=== PATIENT | female | born 1980 | race Caucasian/White ===

== ENCOUNTER → 2021-09-24 08:53 | Outpatient (CLI) | payer OTHER, SELFPAY ==
[2021-09-25 14:05] LABS: SARS-CoV-2 RNA PCR Negative
== END ==
PROVIDERS: PCP Family Medicine; Visit Provider Nurse Practitioner Family
DX: R68.89 Other general symptoms and signs (principal); Z20.822 Contact with and (suspected) exposure to COVID-19
CPT/HCPCS: C9803; U0003; U0005

== ENCOUNTER 2022-08-14 13:56 | Emergency (ER) | payer OTHER, SELFPAY ==
--- NOTE | 2022-08-14 13:59 | ED.EYEPROB ---
HPI - Eye Problem General Chief complaint: Eye Problems Stated complaint: Lt Eye Irritation Time Seen by Provider: 08/14/22 13:59 Source: patient Mode of arrival: ambulatory Limitations: no limitations History of Present Illness HPI Narrative: Mikayla is a 41-year-old female patient presenting to clinic today with complaints of left eye discomfort. She reports she thinks something may a blew in her eye yesterday while she was outside. Reports pain is to the top of the eye in the upper inner eyelid. She reports that the area has some mild swelling and is very tender to palpation. It is causing some blurry vision Related Data Home Medications Medication Instructions Recorded Confirmed alprazolam 0.25 mg tablet 0.25 mg PO QHS PRN Anxiety 08/26/21 08/14/22 ascorbic acid (vitamin C) 500 mg 250 mg PO DAILY 08/26/21 08/14/22 tablet cranberry 400 mg capsule 400 mg PO DAILY 08/26/21 08/14/22 folic acid 1 mg tablet 1 mg PO DAILY 08/26/21 08/14/22 pantoprazole 20 mg tablet,delayed 20 mg PO BID 08/26/21 08/14/22 release ustekinumab 90 mg/mL subcutaneous 90 mg subcut MONTHLY 08/26/21 08/14/22 syringe (Stelara) hyoscyamine sulfate 0.125 mg tablet 0.125 mg PO PRN PRN Cramps 08/14/22 08/14/22 ondansetron HCl 8 mg tablet 8 mg PO PRN PRN Nausea 08/14/22 08/14/22 spironolactone 100 mg tablet 100 mg PO DAILY 08/14/22 08/14/22 Allergies Allergy/AdvReac Type Severity Reaction Status Date / Time No Known Allergies Allergy Verified 08/14/22 14:03 Review of Systems Review of Systems: Pertinent positives per HPI. Patient denies any fever, chills, rash, headache, dizziness, cough, runny nose, sore throat, shortness of breath, chest pain, palpitations, nausea, vomiting, diarrhea, constipation, abdominal pain, or any urinary issues. PMF Past Medical History Medical History Anxiety Colonic disease Crohn disease Osteopenia Surgical History Surgical History History of bilateral breast reduction surgery History of colon resection History of facial surgery Family History Family History Other Allergies Asthma Breast cancer Malignant neoplasm of prostate Social History Social History Smoking status: Current every day smoker (E cigs/vaging) Tobacco type: e-cigarettes/vaping Alcohol intake: current Comments At the time of my signature, I reviewed and agree with the nursing past medical, surgical, social, and family history. There is no relevant family history pertinent to the patient complaint. Exam Narrative: General: Well-developed, well nourished, in no apparent distress Head: Normocephalic, atraumatic Eyes: Pupils equally round and reactive to light bilaterally, EOM intact, right sclera and conjunctive clear, left sclera injected and conjunctiva clear, no discharge, right lids normal, left upper lid with mild swelling and tender to palpation. No mass, lesion, foreign body noted in the left eye. Wood's lamp exam performed and is negative for any sign of corneal abrasion. Ears: TMs intact and clear, ear canals clear, no drainage, grossly hearing normal. Nose: Nares patent, no discharge, no inflammation, no sinus tenderness. Mouth: Oropharynx without lesions or masses, good dentition, MMM. Neck: Supple, trachea midline, no enlargement of anterior or posterior cervical nodes, no thyroid masses or goiter palpable. Cardio: Regular rate and rhythm, s1 and s2 normal, no murmur appreciated. Resp: Clear to auscultation bilaterally anteriorly and posteriorly, no rhonchi, rales, wheezing or rubs Course Course Emergency Course: Portions of this record may have been created with voice recognition software. Level of Care: Express Care Visit Vital Signs Vital signs: V
[2022-08-14 14:09] VITALS: BP 133/84; PULSE 123; RESP 18; TEMP 36.7; O2SAT 100
== END 2022-08-14 14:20 | disposition home or self-care (01) ==
PROVIDERS: Emergency Provider Nurse Practitioner Family; PCP Family Medicine
DX: H57.12 Ocular pain, left eye (principal); F17.209 Nicotine dependence, unspecified, with unspecified nicotine-induced disorders
CPT/HCPCS: 99213; A9270; G0463

== ENCOUNTER 2023-01-14 10:06 | Outpatient (CLI) | payer OTHER, SELFPAY ==
[2023-01-14 11:05] LABS: T4 Thyroxine 8.25 ug/dL (5.53-11.0)
== END 2023-01-14 10:07 | disposition home or self-care (01) ==
PROVIDERS: PCP Family Medicine; Visit Provider Nurse Practitioner Family
DX: K50.90 Crohn's disease, unspecified, without complications (principal); R21 Rash and other nonspecific skin eruption; F41.9 Anxiety disorder, unspecified
CPT/HCPCS: 36415; 84436

== ENCOUNTER 2023-03-30 11:13 | Outpatient (CLI) | payer OTHER, SELFPAY ==
[2023-03-30 12:13] LABS: Free T4 Free Thyroxine 1.06 ng/mL (0.78-2.19)
[2023-03-30 12:20] LABS: Thyroid Stimulating Hormone 0.514 uIU/mL (0.465-4.680)
[2023-04-01 04:47] LABS: FSH 24.7 mIU/mL (***); LH 18.5 mIU/mL (***)
[2023-04-05 18:17] LABS: Estrogen 639.1 pg/mL
== END 2023-03-30 11:14 | disposition home or self-care (01) ==
LOC: ANHLAB 11:14
PROVIDERS: PCP Family Medicine; Visit Provider Nurse Practitioner Family
DX: R63.5 Abnormal weight gain (principal); R53.83 Other fatigue; R23.2 Flushing
CPT/HCPCS: 36415; 82672; 83001; 83002; 84439; 84443

== ENCOUNTER 2023-06-17 10:55 | Outpatient (CLI) | payer OTHER, SELFPAY ==
[2023-06-22 06:29] LABS: FSH 10.1 mIU/mL (***); Progesterone 0.3 ng/mL (***)
[2023-06-24 21:28] LABS: Estradiol, Ultrasensitive 132 pg/mL
== END 2023-06-17 10:56 | disposition home or self-care (01) ==
LOC: ANHLAB 10:57
PROVIDERS: PCP Family Medicine; Visit Provider Obstetrics & Gynecology
DX: E28.0 Estrogen excess (principal); R23.2 Flushing
CPT/HCPCS: 36415; 82670; 83001; 84144

== ENCOUNTER 2023-10-02 13:22 | Emergency (ER) | payer OTHER, SELFPAY ==
--- NOTE | 2023-10-02 13:42 | ED.GENADULT ---
HPI - General Adult General Chief complaint: Ear Stated complaint: rt ear pain Time Seen by Provider: 10/02/23 13:42 Source: patient Mode of arrival: ambulatory Limitations: no limitations History of Present Illness HPI narrative: 43-year-old female patient presents to [facility] with complaints of congestion in the sinuses right-sided jaw and ear pain. Patient states she has had the symptoms for about 5 days. Patient denies any fevers body aches or chills. Denies any chest pain, shortness of breath, coughing, Dom abdominal pain, nausea, vomiting or diarrhea. Patient does have history of Crohn's and recently started and infusion. Related Data Home Medications Medication Instructions Recorded Confirmed alprazolam 0.25 mg tablet 0.25 mg PO QHS PRN Anxiety 08/26/21 10/02/23 ascorbic acid (vitamin C) 500 mg 250 mg PO DAILY 08/26/21 10/02/23 tablet cranberry 400 mg capsule 400 mg PO DAILY 08/26/21 10/02/23 hyoscyamine sulfate 0.125 mg tablet 0.125 mg PO PRN PRN Cramps 08/14/22 10/02/23 levonorgestrel 21 mcg/24 hours (8 See Rx Instructions .Route .COMPLEX 08/14/22 10/02/23 yrs) 52 mg intrauterine device (Mirena) spironolactone 100 mg tablet 100 mg PO DAILY 08/14/22 10/02/23 risankizumab-rzaa 60 mg/mL 600 mg IV MONTHLY 06/09/23 10/02/23 intravenous solution (Skyrizi) ibuprofen 100 mg/5 mL oral 600 mg PO TID pain 10/02/23 10/02/23 suspension Allergies Allergy/AdvReac Type Severity Reaction Status Date / Time Iodinated Contrast Media AdvReac Severe Anaphylaxis Verified 10/02/23 13:48 acetaminophen [From Percocet] AdvReac Intermediate Hypotension Verified 10/02/23 13:48 buspirone [From BuSpar] AdvReac Intermediate Palpitation Verified 10/02/23 13:48 s oxycodone [From Percocet] AdvReac Intermediate Hypotension Verified 10/02/23 13:48 Review of Systems Review of Systems: CONSTITUTIONAL: Denies fever, chills, or sweats. EYES: Denies visual changes, redness, or discharge. ENT: Positive rhinorrhea, congestion, denies sore throat, positive right otalgia. CARDIOVASCULAR: Denies chest pain, palpitations, or edema. RESPIRATORY: Denies cough or dyspnea. GASTROINTESTINAL: Denies abdominal pain, nausea, vomiting, or diarrhea. GENITOURINARY: Denies dysuria or hematuria. SKIN: Denies rash or itching. MUSCULOSKELETAL: Denies back pain, joint pain, or myalgia. NEUROLOGIC: Denies headache, numbness, or weakness. PSYCHIATRIC: Denies anxiety or depression. [facility] Past Medical History Medical History Anxiety BMI 29.0-29.9,adult Colonic disease Crohn disease Osteopenia Surgical History Surgical History History of bilateral breast reduction surgery History of colon resection History of facial surgery Family History Family History Father Hypertension Depression Mother Asthma Grandparent Kidney cancer, primary, with metastasis from kidney to other site Other Allergies Breast cancer Malignant neoplasm of prostate Social History Social History Smoking status: Current every day smoker Tobacco type: e-cigarettes/vaping Second hand tobacco smoke exposure: Yes Alcohol intake: current Alcohol use details: socially Substance use: never Substance use type: does not use Lack of Transportation: No Lack of Food: Never True Current Housing: I Have Housing Concerned About Future Housing: No Difficulty Paying Gas/Electric Bills: No Difficulty Paying for Meds: No Currently Unemployed: No Education: High School Diploma/GED Difficulty w/ Childcare or Family Care: No Living arrangements: with family Occupation/Education: occupation 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
[2023-10-02 13:46] VITALS: BP 129/89; PULSE 89; RESP 16; TEMP 36.3; O2SAT 99
== END 2023-10-02 14:22 | disposition home or self-care (01) ==
PROVIDERS: Emergency Provider Nurse Practitioner Family; PCP Family Medicine
DX: J01.90 Acute sinusitis, unspecified (principal); K50.90 Crohn's disease, unspecified, without complications; F17.290 Nicotine dependence, other tobacco product, uncomplicated; Z79.899 Other long term (current) drug therapy; Z79.1 Long term (current) use of non-steroidal anti-inflammatories (NSAID)
CPT/HCPCS: 99213; G0463

== ENCOUNTER → 2023-11-22 09:47 | Outpatient (CLI) | payer OTHER, SELFPAY ==
--- NOTE | ~2023-11-22 | MM_ITS ---
EXAMINATION: MM screening марина BI w candie HISTORY: Screening TECHNIQUE: Craniocaudal and mediolateral oblique 3-D tomosynthesis images were obtained and synthetic 2-D images were generated. CAD analysis was submitted and interpreted. COMPARISON: No prior mammogram is available for comparison at this institution. BREAST PARENCHYMAL COMPOSITION: Dense: The breasts are heterogeneously dense, which may obscure small masses FINDINGS: There is distortion in the outer aspect of both breasts on CC views, consistent with prior breast reduction surgery. There are no discrete masses or suspicious cluster of calcifications. IMPRESSION: 1. Bilateral asymmetry/architectural distortion, likely postsurgical. Recommend comparison to previou s outside mammograms. BI-RADS CATEGORY 0 - INCOMPLETE STUDY, NEED ADDITIONAL IMAGING EVALUATION. Reviewed, dictated and finalized at location A. 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 Bilateral asymmetry/architectural distortion, likely postsurgical. Recommend comparison to previous outside mammograms. BI-RADS CATEGORY 0 - INCOMPLETE STUDY, NEED ADDITIONAL IMAGING EVALUATION.
== END ==
PROVIDERS: PCP Nurse Practitioner Family; Visit Provider Nurse Practitioner Family
DX: Z12.31 Encounter for screening mammogram for malignant neoplasm of breast (principal); R92.8 Other abnormal and inconclusive findings on diagnostic imaging of breast
CPT/HCPCS: 77063; 77067

== ENCOUNTER 2024-02-22 14:00 | Emergency (ER) | payer OTHER, SELFPAY ==
[2024-02-22 14:10] VITALS: BP 120/92; PULSE 95; RESP 18; TEMP 36.3; O2SAT 100
--- NOTE | 2024-02-22 14:17 | ED.SKABFB ---
HPI - Skin/Abscess/Foreign Bdy General Chief complaint: Skin/Abscess/Foreign Body Stated complaint: tick bite Time Seen by Provider: 02/22/24 14:17 Source: patient Mode of arrival: ambulatory Limitations: no limitations History of Present Illness HPI narrative: 43-year-old female presents with complaint of tick bite to left hip. Patient states that she removed a tick 4 days ago. States that redness worse today. Mild swelling with no drainage. Patient also reports several mosquito bites with swelling and redness. Patient states she is prone to getting skin infections easily. Is concerned she may need an antibiotic. No concern for Lyme disease. States the tick was tiny and thinks was a seed tick. All systems reviewed and negative except as noted above. Related Data Home Medications Medication Instructions Recorded Confirmed alprazolam 0.25 mg tablet 0.25 mg PO QHS PRN Anxiety 08/26/21 02/22/24 ascorbic acid (vitamin C) 500 mg 250 mg PO DAILY 08/26/21 02/22/24 tablet cranberry 400 mg capsule 400 mg PO DAILY 08/26/21 02/22/24 hyoscyamine sulfate 0.125 mg tablet 0.125 mg PO PRN PRN Cramps 08/14/22 02/22/24 levonorgestrel 21 mcg/24 hr (up to See Rx Instructions .Route .COMPLEX 08/14/22 02/22/24 8 years) 52 mg intrauterine device (Mirena) risankizumab-rzaa 360 mg/2.4 mL See Rx Instructions .Route .COMPLEX 02/22/24 02/22/24 (150 mg/mL) subcut wearable injector (Skyrizi) Allergies Allergy/AdvReac Type Severity Reaction Status Date / Time Iodinated Contrast Media AdvReac Severe Anaphylaxis Verified 02/22/24 14:04 acetaminophen [From Percocet] AdvReac Intermediate Hypotension Verified 02/22/24 14:04 buspirone [From BuSpar] AdvReac Intermediate Palpitation Verified 02/22/24 14:04 s oxycodone [From Percocet] AdvReac Intermediate Hypotension Verified 02/22/24 14:04 Review of Systems Review of Systems: CONSTITUTIONAL: Denies fever, chills, or sweats. EYES: Denies visual changes, redness, or discharge. ENT: Denies rhinorrhea, congestion, sore throat, or otalgia. CARDIOVASCULAR: Denies chest pain, palpitations, or edema. RESPIRATORY: Denies cough or dyspnea. GASTROINTESTINAL: Denies abdominal pain, nausea, vomiting, or diarrhea. GENITOURINARY: Denies dysuria or hematuria. SKIN: Denies rash. Reports several mosquito bites, reports tick bite to left hip. MUSCULOSKELETAL: Denies back pain, joint pain, or myalgia. NEUROLOGIC: Denies headache, numbness, or weakness. PSYCHIATRIC: Denies anxiety or depression. All other systems reviewed are negative, except as documented in HPI. [facility] Past Medical History Medical History Anxiety BMI 29.0-29.9,adult Colonic disease Crohn disease Osteopenia Surgical History Surgical History History of bilateral breast reduction surgery History of colon resection History of facial surgery Family History Family History Father Hypertension Depression Mother Asthma Grandparent Kidney cancer, primary, with metastasis from kidney to other site Other Allergies Breast cancer Malignant neoplasm of prostate Social History Social History Smoking status: Current every day smoker Tobacco type: e-cigarettes/vaping Second hand tobacco smoke exposure: Yes Alcohol intake: current Alcohol use details: socially Substance use: never Substance use type: does not use Lack of Transportation: No Lack of Food: Never True Current Housing: I Have Housing Concerned About Future Housing: No Difficulty Paying Gas/Electric Bills: No Difficulty Paying for Meds: No Currently Unemployed: No Education: High School Diploma/GED Difficulty w/ Childcare or Family Care: No Living arrangements: with family Occupation/Education: occupation
== END 2024-02-22 14:28 | disposition home or self-care (01) ==
PROVIDERS: Emergency Provider Nurse Practitioner Family; PCP Family Medicine
DX: S70.262A Insect bite (nonvenomous), left hip, initial encounter (principal); W57.XXXA Bitten or stung by nonvenomous insect and other nonvenomous arthropods, initial encounter; F41.9 Anxiety disorder, unspecified; K50.90 Crohn's disease, unspecified, without complications; M81.0 Age-related osteoporosis without current pathological fracture; F17.290 Nicotine dependence, other tobacco product, uncomplicated
CPT/HCPCS: 99213; G0463

== ENCOUNTER 2024-04-25 08:25 | Outpatient (CLI) | payer OTHER, SELFPAY ==
--- NOTE | ~2024-04-25 | MMUS_ITS ---
EXAMINATION: MM diagnostic марина BI w candie, US breast BI complete HISTORY: Follow-up bilateral breast asymmetries TECHNIQUE: Additional 3-D tomosynthesis images of the breasts were performed and synthetic 2-D images were generated. CAD analysis was submitted and interpreted. High resolution bilateral complete breas t ultrasound was performed. COMPARISON: Comparison to multiple prior studies sequentially, with oldest reviewed study dated 08/26. BREAST PARENCHYMAL COMPOSITION: Dense: The breasts are heterogeneously dense, which may obscure small masses FINDINGS: MAMMOGRAPHIC FINDINGS: There are persistent asymmetries in the upper outer quadrant of both breasts, although no discrete ma ss or architectural distortion is seen. There are no suspicious calcifications. ULTRASOUND: Complete bilateral US of all 4 quadrants of the breasts and retroareolar region was reviewed. Right breast: Normal heterogeneous echotexture without focal solid or cystic mass. Left breast: There are the areola at 12:00 there is an irregular shaped hypoechoic mass with areas of posterior acoustic shadowing and irregular margins. No internal vascularity. At 6:00, 8 cm from the nipple, there is a benign 7 mm intramammary lymph node. IMPRESSION: 1. Irregular shaped hypoechoic mass of the left breast with areas of posterior shadowing at 12:00 bill r the nipple. 2. Ultrasound-guided left breast biopsy recommended. BI-RADS category 4, suspicious findings. Reviewed, dictated and finalized at location B. IMPRESSION: 1. Irregular shaped hypoechoic mass of the left breast with areas of posterior shadowing at 12:00 near the nipple. 2. Ultrasound-guided left breast biopsy recommended. BI-RADS category 4, suspicious findings.
== END 2024-04-25 08:26 ==
LOC: MICIMG 08:26
PROVIDERS: PCP Family Medicine; Visit Provider Nurse Practitioner Family
DX: N64.89 Other specified disorders of breast (principal); R92.8 Other abnormal and inconclusive findings on diagnostic imaging of breast
CPT/HCPCS: 76641; 77062; 77066; G0279

== ENCOUNTER 2024-05-16 09:13 | Outpatient (CLI) | payer OTHER, SELFPAY ==
--- NOTE | ~2024-05-16 | US_ITS ---
US breast LT limited 05/16/2024 11:09 Indication: Abnormal hypoechoic mass seen in the left breast on prior examination. Biopsy requested. Procedure: High-resolution Limited LEFT breast ultrasound Comparison: Ultrasound dated 04/25/2024 Findings: In the area of sonographic concern at 12:00 near the nipple there are mildly prominent duct s with some edge shadowing. No discrete mass is identified. Impression: 1: No definite discrete solid mass identified to suggest malignancy. Short-term follow-up left breast ultrasound recommended in 6 months. BI-RADS CATEGORY 3-PROBABLY BENIGN FINDING RECOMMENDATION: 6 month follow-up Limited left breast ultrasound recommended. Reviewed, dictated and finalized at location B. Impression: 1: No definite discrete solid mass identified to suggest malignancy. Short-term follow-up left breast ultrasound recommended in 6 months. BI-RADS CATEGORY 3-PROBABLY BENIGN FINDING RECOMMENDATION: 6 month follow-up Limited left breast ultrasound recommended.
== END 2024-05-16 09:14 | disposition home or self-care (01) ==
LOC: ANHIMG 09:14
PROVIDERS: PCP Family Medicine; Visit Provider Nurse Practitioner Family
DX: N63.20 Unspecified lump in the left breast, unspecified quadrant (principal); R92.8 Other abnormal and inconclusive findings on diagnostic imaging of breast
CPT/HCPCS: 76642

== ENCOUNTER 2024-06-29 08:57 | Emergency (ER) | payer OTHER, SELFPAY ==
--- NOTE | 2024-06-29 09:04 | ED.URI ---
HPI - URI/Sore Throat General Chief Complaint: Upper Respiratory Infection Stated Complaint: cold symptoms Time Seen by Provider: 06/29/24 09:04 Source: patient Mode of arrival: ambulatory Limitations: no limitations History of Present Illness HPI Narrative: 43-year-old female presents with complaint of cough, fatigue, body aches, headache for 5 days. Reports temp 101? F this a.m.. Took ibuprofen prior to arrival. Has been taking Tylenol Cold and flu to treat symptoms. no chest pain or shortness of breath. Patient reports off and on sick for the past month. Last week thought she had a GI bug. Prior to that had an upper respiratory infection. Reports dry mouth and fatigue. Thinks she is dehydrated. [facility] ago and had IV bag of fluids. No urinary symptoms. All systems reviewed and negative except as noted above. Related Data Home Medications Medication Instructions Recorded Confirmed alprazolam 0.25 mg tablet 0.25 mg PO QHS PRN Anxiety 08/26/21 06/29/24 ascorbic acid (vitamin C) 500 mg 250 mg PO DAILY 08/26/21 06/29/24 tablet cranberry 400 mg capsule 400 mg PO DAILY 08/26/21 06/29/24 hyoscyamine sulfate 0.125 mg tablet 0.125 mg PO PRN PRN Cramps 08/14/22 06/29/24 levonorgestrel 21 mcg/24 hr (up to See Rx Instructions .Route .COMPLEX 08/14/22 06/29/24 8 years) 52 mg intrauterine device (Mirena) risankizumab-rzaa 360 mg/2.4 mL See Rx Instructions .Route .COMPLEX 02/22/24 06/29/24 (150 mg/mL) subcut wearable injector (Skyrizi) spironolactone 100 mg tablet 100 mg PO DAILY 06/29/24 06/29/24 Allergies Allergy/AdvReac Type Severity Reaction Status Date / Time Iodinated Contrast Media AdvReac Severe Anaphylaxis Verified 06/29/24 09:01 acetaminophen [From Percocet] AdvReac Intermediate Hypotension Verified 06/29/24 09:01 buspirone [From BuSpar] AdvReac Intermediate Palpitation Verified 06/29/24 09:01 s oxycodone [From Percocet] AdvReac Intermediate Hypotension Verified 06/29/24 09:01 Review of Systems Review of Systems: CONSTITUTIONAL: Reports fever, chills, or sweats. EYES: Denies visual changes, redness, or discharge. ENT: Denies rhinorrhea, congestion, sore throat, or otalgia. CARDIOVASCULAR: Denies chest pain, palpitations, or edema. RESPIRATORY: reports cough. Reports dyspnea. GASTROINTESTINAL: Denies abdominal pain, nausea, vomiting, or diarrhea. GENITOURINARY: Denies dysuria or hematuria. SKIN: Denies rash or itching. MUSCULOSKELETAL: Denies back pain. Reports joint pain, or myalgia. NEUROLOGIC: Denies headache, numbness, or weakness. PSYCHIATRIC: Denies anxiety or depression. All other systems reviewed are negative, except as documented in HPI. [facility] Past Medical History Medical History (Updated 06/29/24 @ 09:34 by Flor Alejandra NP) Anxiety Colonic disease Crohn disease Osteopenia Surgical History Surgical History History of bilateral breast reduction surgery History of colon resection History of facial surgery Family History Family History Father Hypertension Depression Mother Asthma Grandparent Kidney cancer, primary, with metastasis from kidney to other site Other Allergies Breast cancer Malignant neoplasm of prostate Social History Social History Smoking status: Current every day smoker Tobacco type: e-cigarettes/vaping Second hand tobacco smoke exposure: Yes Alcohol intake: current Alcohol use details: socially Substance use: never Substance use type: does not use Lack of Transportation: No Lack of Food: Never True Current Housing: I Have Housing Concerned About Future Housing: No Difficulty Paying Gas/Electric Bills: No Difficulty Paying for Meds: No Currently Unemployed: No Education: High School Diploma/GED Difficulty w/ Childcare o
[2024-06-29 09:10] VITALS: BP 116/81; PULSE 112; RESP 18; TEMP 37.2; O2SAT 100
[2024-06-29 09:35] LABS: EDINFLUASCREEN Negative (Negative); EDINFLUBSCREEN Negative (Negative)
[2024-06-29 09:36] LABS: EDCOVIDSCREEN Negative (Negative)
== END 2024-06-29 09:35 | disposition home or self-care (01) ==
PROVIDERS: Emergency Provider Nurse Practitioner Family; PCP Family Medicine
DX: R05.9 Cough, unspecified (principal); M25.50 Pain in unspecified joint; Z20.822 Contact with and (suspected) exposure to COVID-19; K50.90 Crohn's disease, unspecified, without complications; M85.80 Other specified disorders of bone density and structure, unspecified site; F41.9 Anxiety disorder, unspecified; F17.290 Nicotine dependence, other tobacco product, uncomplicated
CPT/HCPCS: 87426; 87804; 99213; G0463

== ENCOUNTER 2024-12-17 09:33 | Outpatient (CLI) | payer OTHER, SELFPAY ==
--- NOTE | ~2024-12-17 | US_ITS ---
EXAMINATION: US breast LT limited HISTORY: 44-year-old woman with no significant family or personal history of breast cancer presents f or diagnostic 6 month follow-up ultrasound examination of an area of prior mammographic and sonograph ic concern within the left breast. Of note, the patient has undergone bilateral reduction mammoplasty in 2019, complicated by a postoperative hematoma. High resolution limited left breast ultrasound was performed. COMPARISON: Reference is made to previous ultrasound dated 05/16/2024 and 04/25/2024 as well as prior m ammography dated 04/25/2024 and 11/22/2023. FINDINGS: ULTRASOUND: At the 12:00 position of the left breast adjacent to the area of prior sonographic concern, no abnorm ality is appreciated. Sonographic evaluation of the remainder of the submitted images demonstrate benign fibroglandular maynor ments without a cystic or solid lesion of concern. IMPRESSION: No sonographic evidence to suggest the presence of malignancy Resumption of yearly mammography is recommended. BI-RADS Category 2: Benign finding(s). Reviewed, dictated and finalized at location A.
== END 2024-12-17 09:34 | disposition home or self-care (01) ==
LOC: MICIMG 09:35
PROVIDERS: PCP Family Medicine; Visit Provider Nurse Practitioner Family
DX: N63.20 Unspecified lump in the left breast, unspecified quadrant (principal); Z85.3 Personal history of malignant neoplasm of breast
CPT/HCPCS: 76642

== ENCOUNTER 2025-05-15 16:51 | Emergency (ER) | payer OTHER, SELFPAY ==
--- OUTSIDE RECORDS SUMMARY | 2025-01-07 05:45 | XMS_ITS ---
Author Organization [facility] Address [facility] [facility] [address] [place] [address] Care Team Providers Care Inspector Plug Seam Name Role Phone Ele JIMENEZ, Robert Primary Care Provider Annamarie Martin [phone] REASON FOR VISIT R/S due to Social History Sex Assigned At : Social History Observation Description Sex Assigned At Female Encounters Encounter Location Date Provider Diagnosis [facility] [place] [address] [facility] [address] [place] [address] 01/07/2025 Annamarie Camacho Plan Of Treatment No Information Progress Notes * Mikayla GOODWIN CDOB:1979 (44 yo F)Acc No.[id number]:01/07/2025 Patient: Biju lora Mikayla Brewer Provider: TESSA HIGGINBOTHAM :1980 A ge:44 Y S ex:Female Date:01/07/2025 [facility] [id number] Pcp:Robert Marlow MD Subjective: * Chief Complaints: * R /S due to * Electronic signature of TESSA Martinez on 05/15/2025 at 04:52 PM CDT Sign off status: Pending * Provider: TESSA HIGGINBOTHAM Date: 0 01/07/2025 Generated for Printi ng/Faxing/eTransmitting on: 0 05/15/2025 04:52 PM CDT
--- OUTSIDE RECORDS SUMMARY | 2025-05-15 16:51 | XMS_ITS | Continuity of Care Document ---
Author Name [facility] Organization [facility] Care Team Providers Care Bead Filler Name Role Phone [facility] Unavailable Unavailable Medications Combined list of outpatient medications from Department of Defense and Veterans Affairs facilities.Medications provided include 1) outpatient medications from the last 15 months, and 2) patient-reported medications. Medication Details Route Status Patient Instructions Prescription Expires Prescription Number Last Dispense Date Ordering Provider Order Date Order Qty Source amitriptyli ne 10 mg oral tablet START WITH ONE TABLET EVERY NIGHT AT BEDTIME FOR ONE WEEK, THEN TWO TABLETS EVERY NIGHT AT BEDTIME FOR ONE WEEK, THEN THREE TABLETS EVERY NIGHT AT BEDTIME THEREAFT ER DIRECTED , # 90 EA, 3 total refill(s ), Acute Complet ed 05/04/2023 2 2022 90.0 Ambulat ory Pharmac y DOXYCYCLINE HYCLATE (doxycyclin e hyclate), 100 MG, CAPSULE, ORAL, [employer], 500 ea. BOTTLE Active [id number] 4 2023 14 Pharmac y Data Transac tion Service Facilit y IBUPROFEN (ibuprofen) , 100 MG/5ML, ORAL SUSP, ORAL, [employer], 473 ml BOTTLE Active [id number] 4 2023 473 Pharmac y Data Transac tion Service Facilit y ONDANSETRON ODT (ondansetro n), 8 MG, TAB RAPDIS, ORAL, [employer], 30 ea. BOTTLE Active [id number] 4 2023 30 Pharmac y Data Transac tion Service Facilit y PREDNISONE (prednisone ), 50 MG, TABLET, ORAL, [employer], 100 ea. BOTTLE Cancele d [id number] : 2023 0 Pharmac y Data Transac tion Service Facilit y SKYRIZI ON-BODY (risankizum ab-rzaa), 360 MG/2.4, WEAR INJCT, SUBCUT, [employer], 2.4 ml CARTRIDGE Cancele d [id number] : 2023 0 Pharmac y Data Transac tion Service Facilit y SKYRIZI ON-BODY (risankizum ab-rzaa), 360 MG/2.4, WEAR INJCT, SUBCUT, [employer], 2.4 ml CARTRIDGE Cancele d [id number] : 2023 0 Pharmac y Data Transac tion Service Facilit y spironolact one 100 mg oral tablet TAKE ONE TABLET DAILY DIRECTED , # 90 EA, 3 total refill(s ), Acute Complet ed 12/27/2023 3 2023 90.0 Ambulat ory Pharmac y spironolact one 100 mg tablet 100 mg, Oral, # 90 EA, 3 total refill(s ), Hard Stop Oral (given by mouth) Complet ed 03/13/2025 4 2024 90.0 Ambulat ory Pharmac y tretinoin 0.05% cream [45g] See Instruct ions, # 45 g, 11 total refill(s ), Hard Stop Complet ed 03/13/2025 4 2024 45.0 Ambulat ory Pharmac y tretinoin 0.05% topical cream APPLY A PEA SIZED DROP TO ENTIRE FACE AT BEDTIME. , # 45 g, 2 total refill(s ), Acute Complet ed 12/27/2023 3 2023 45.0 Ambulat ory Pharmac y TRIAMCINOLO NE ACETONIDE (TRIAMCINOL ONE ACETONIDE), 0.1%, CREAM(GM), TOPICAL, [employer], 30 g TUBE Active [id number] 2023 30 Pharmac y Data Transac tion Service Facilit y Allergies, Adverse Reactions, Alerts Combined list of allergies from Department of Defense and Veterans Affairs facilities. It does not include entries that were removed or entered in error. Substance Category Reaction Severity Reaction type Status Date Reported Comments Source METHOTREXATE Drug allergy (disorder) Anaphylaxi s, Other: THROAT SWELLING active [address] [place] [address] [employer] [place] [place] methotrexate Propensity to adverse reactions to drug Anaphylaxi s Active throat swelling, difficulty breathing, ANAPHYLAXI S Unknown Organiza tion Procedures Combined list of: 1) Procedures from Department of Veterans Affairs facilities going back up to thelast 18 months, not all [place] non-surgical procedures are included; 2) All procedures from the Department of Defense facilities. Procedure Procedure Type Code Date Perfomer Comments Sourc e No data available for this section Ambulatory P harmacy Social History Combined list of available smoking, tobacco, and other social history from Department of Defense and Veterans Affairs facilities. Social History Type Response Date Comment Sourc e This section is an empty social history section. [facility] Assessment and Plan Combined list of future care activities from Department of Defense and Veterans Affairs facilities (e.g., assessment and plan notes, appointments, orders, and referrals). Additional future care activities may be listed in the Plan of Care section. Result Assessment and Plan Date Source Assessment and Plan No data available for this section 05/15/2025 Ambulatory Pharmacy Functional Status Combined list of recent functional and cognitive assessments recorded at Department of Defense and Veterans Affairs ([place]VA Functional [place] Measurement (FIM) Scale: 1 = Total Assistance (Subject = 0% +), 2 = Maximal Assistance (Subject = 25% +), 3 = Moderate Assistance (Subject = 50% +), 4 = Minimal Assistance (Subject = 75% +), 5 = Supervision, 6 = Modified [place] (Device), 7 = Complete [place] (Timely, Safely). Assessment Date/Time Source Assessment Type Assessment Skill Assessment Score Assessment Details No data available for this section
--- OUTSIDE RECORDS SUMMARY | 2025-05-15 16:51 | XMS_ITS | Continuity of Care Document ---
Author Name [facility] Organization [facility] Care Team Providers Care Public Works Director Name Role Phone [facility] Unavailable Unavailable Medications Combined list of outpatient [...] (doxycyclin e hyclate), 100 MG, CAPSULE, ORAL, [employer], 500 ea. BOTTLE Active [id number] 2023 14 Pharmac y Data Transac tion Service Facilit y IBUPROFEN (ibuprofen) , 100 MG/5ML, ORAL SUSP, ORAL, [employer], 473 ml BOTTLE Active [id number] 4 2023 473 Pharmac y Data Transac tion Service Facilit y ONDANSETRON ODT (ondansetro n), 8 MG, TAB RAPDIS, ORAL, [employer], 30 ea. BOTTLE Active [id number] 4 2023 30 Pharmac y Data Transac tion Service Facilit y PREDNISONE (prednisone ), 50 MG, TABLET, ORAL, [employer], 100 ea. BOTTLE Cancele d [id number] : 2023 0 Pharmac y Data Transac tion Service Facilit y SKYRIZI ON-BODY (risankizum ab-rzaa), 360 MG/2.4, WEAR INJCT, SUBCUT, [employer], 2.4 ml CARTRIDGE Cancele d [id number] : 2023 0 Pharmac y Data Transac tion Service Facilit y SKYRIZI ON-BODY (risankizum ab-rzaa), 360 MG/2.4, WEAR INJCT, SUBCUT, [employer]BM[employer] LLC, 2.4 ml CARTRIDGE Cancele d [id number] : 2023 0 Pharmac y Data Transac [...] ACETONIDE (TRIAMCINOL ONE ACETONIDE), 0.1%, CREAM(GM), TOPICAL, [employer], 30 g TUBE Active [id number] 4 2023 30 Pharmac y Data Transac tion Service Facilit y Allergies, Adverse Reactions, Alerts Combined list of allergies from Department of Defense and Veterans Affairs facilities. It does not include entries that were removed or entered in error. Substance Category Reaction Severity Reaction type Status Date Reported Comments Source METHOTREXATE Drug allergy (disorder) Anaphylaxi s, Other: THROAT SWELLING active [address] [place] [address] [employer] ([facility] methotrexate Propensity to adverse reactions to drug Anaphylaxi s Active throat swelling, difficulty breathing, ANAPHYLAXI S Unknown Organiza tion Procedures Combined list of: 1) Procedures from Department of Veterans Affairs facilities going back up to thelast 18 months, not all [place] non-surgical procedures are included; 2) All procedures [...] section is an empty social history section. [facility] Assessment and Plan Combined list of [...] at Department of Defense and Veterans Affairs ([place] Functional [place] Measurement (FIM) Scale: 1 = Total Assistance (Subject = 0% +), 2 = Maximal Assistance (Subject = 25% +), 3 = Moderate Assistance (Subject = 50% +), 4 = Minimal Assistance (Subject = 75% +), 5 = Supervision, 6 = Modified [place] (Device), 7 = Complete [place] (Timely, Safely). Assessment Date/Time Source Assessment Type Assessment Skill Assessment Score Assessment Details No data available for this section
--- OUTSIDE RECORDS SUMMARY | 2025-05-15 16:53 | XMS_ITS | Encounter Summary ---
Author Organization [facility] Address [address] [place] [address] Care Team Providers Care Elevator Mechanic Apprentice Name Role Phone Rik Jennings MD Primary Care Provider [phone] Brendon Deluca MD Primary Care Provider [phone] Humaira Jalloh MD Primary Care Provider [phone] Cady Cabrales MD Unavailable [phone] Encounter Details Date Type Department Care Team (Late st Contact Info) Description 07/30/2017 [place] [address] , Generic ConversionMD Social History Tobacco Use Types Packs/Day Years Used Date Smoking Tobacco: Never Assessed Comments Unknown Sex and Gender Information Value Date Recorded Sex Assigned at Not on file Legal Sex Female 5:36 PM CDT Gender Identity Not on file Sexual Orientation Not on file documented as of this encounter Plan of Treatment Not on file documented as of this encounter Visit Diagnoses Not on filedocumented in this encounter Care Teams Elevator Mechanic Apprentice Relationship Specialty Start Date End Date Rik Jennings MD [address] [place], [place] [id number] PCP - General 05/03/16 11/24/17 Brendon Deluca MD [address] [place] [address] PCP - General FAMILY PRACTICE 11/25/17 07/26/19 Humaira Jalloh MD [address] [facility] [address] [place] [address] PCP - General FAMILY PRACTICE 07/27/19 Cady Cabrales MD [facility] [place] [address] PLASTIC SURGERY 10/08/19 documented as of this encounter
--- OUTSIDE RECORDS SUMMARY | 2025-05-15 16:53 | XMS_ITS | Clinical Summary ---
Author Organization [facility] Address [address] [place] [address] Care Team Providers Care Manufacturing Helper Name Role Phone Humaira Jalloh MD Primary Care Provider [phone] Cady Cabrales MD Unavailable [phone] Allergies Active Allergy Reactions Criticality Noted Date Comments Bee Venom Anaphylaxis High 07/14/2016 Buspirone Tachycardia High 09/25/2019 tachycardia Iodine Throat swelling 11/25/2017 Iodinated Contrast Media Anaphylaxis High 07/28/2014 Oxycodone Other (see comment),GI Upset Low 07/29/2014 HYPOTENSIVE unsure Propoxyphene GI Upset,Seizure High 04/02/2015 Seizure Seizure, hypotension Medications ustekinumab (STELARA) 90 MG/ML injection Inject 90 mg into the skin once. Active lansoprazole 30 MG capsule Take 30 mg by mouth daily. Active azathioprine 50 MG tablet Take 150 mg by mouth daily. Active ondansetron (ZOFRAN ODT) 8 MG disintegrating tablet Take 8 mg by mouth every 8 (eight) hours as needed for Nausea. Active spironolactone 100 MG tablet Take 100 mg by mouth daily. Active ketoconazole 2 % shampoo Apply topically twice a week. Active ranitidine 150 MG tablet Take 150 mg by mouth 2 (two) times daily. Active hyoscyamine 0.[address] 0.125 mg under the tongue every 4 (four) hours as needed for Cramping. Active cetirizine 10 MG tablet Take 10 mg by mouth daily. Active methocarbamol 750 MG Tab Take 1 tablet (750 mg total) by mouth every 4 (four) hours. 180 tablet 8 Active tretinoin 0.05 % cream APPLY PEA SIZED AMOUNT TO ENTIRE FACE EVERY NIGHT AT BEDTIME 7 Active fluocinonide 0.05 % external solution Apply to scalp twice daily. 30 days supply. 7 Active Cranberry 400 MG Tab Take 400 mg by mouth daily. Active Marialuisa, Zingiber officinalis, (MARIALUISA ROOT) 550 MG Cap Take 550 mg by mouth daily as needed. Active melatonin 3 MG tablet Take 3 mg by mouth nightly. Active traMADol 50 MG tablet Take 50 mg by mouth every 6 (six) hours as needed. 8 Active multi vitamin/minerals tablet Take 1 tablet by mouth daily. Active vitamin C 1000 MG tablet Take 1,000 mg by mouth daily as needed. Active Calcium-Ergocalcif jayne 500-200 MG-UNIT Tab Take 1 tablet by mouth daily. 6 Active Cholecalciferol (VITAMIN D) 50 MCG (1999 [place]) Cap 8 Active spironolactone 100 MG tablet Take 100 mg by mouth daily. 7 Active famotidine 40 MG tablet Take 40 mg by mouth daily. 0 Active Family History Medical History Relation Comments Hypertension Father Relation Status Comments Father Alive Mother Alive Social History Tobacco Use Types Packs/Day Years Used Date Smoking Tobacco: Former Cigarettes Q uit: 2016 Smokeless Tobacco: Never Alcohol Use Standard Drinks/Week Comments Yes 8.3 (1 standard drink = 0.6 oz p ure alcohol) Comments No Sex and Gender Information Value Date Recorded Sex Assigned at Not on file Legal Sex Female 5:36 PM CDT Gender Identity Not on file Sexual Orientation Not on file Last Filed Vital Signs Vital Sign Reading Time Taken Comments Blood Pressure 120/93 03/13/2021 6:40 PM CDT Pulse 80 03/13/2021 6:40 PM CDT Temperature 37 C (98.6 F) 03/13/2021 12:58 PM CDT Respiratory Rate 18 03/13/2021 6:40 PM CDT Oxygen Saturation 100% 03/13/2021 6:40 PM CDT Inhaled Oxygen Concentration - - Weight 63.5 kg (140 lb) 03/13/2021 12:58 PM CDT Height 154.9 cm (5' 1) 03/13/2021 12:58 PM CDT Body Mass Index 26.45 03/13/2021 12:58 PM CDT Plan of Treatment Health Maintenance Due Date Last Done Comments Cervical Cancer Screening Pa p Smear (Age 30 to 64) Every 3 Years 1980 Annual Physical 1983 Hepatitis C 1998 DTaP, Tdap and Td Vaccines ( 1 - Tdap) 1999 Hepatitis B Vaccines (1 of 3 - 19+ 3-dose series) 1999 11/14/2015, 07/08/2015, 05/29/2015 HPV Vaccines (1 - 3-dose SCD M series) 2007 Pneumococcal Vaccine: Pediatrics (0 to 5 Years) and At-Risk Patients (6 to 49 Years) (2 of 2 - PPSV23) 09/02/2015 07/08/2015 COVID-19 Vaccine (3 - Pfizer risk series) 02/19/2021 01/22/2021, 01/02/2021 Cervical Cancer Screening Pa p with HPV Testing (Age 30 to 64) Every 5 Years 04/26/2021 04/26/2016 Cervical Cancer Screening wi th HPV 04/26/2021 Mammogram Screening 09/04/2021 09/04/2019 Meningococcal B Vaccine Aged Out No l onger eligible based on patient's age to complete this topic Meningococcal Vaccine Aged Out No danya daisy eligible based on patient's age to complete this topic RSV Immunizations Under 20 Months Aged Out No longer eligible b ased on patient's age to complete this topic Procedures Procedure Name Priority Date/Time Associated Diagnosis Comments MG DIAG W BRIAN BILAT DIGI Routine 09/04/2019 8:34 AM WINDOWS LAPTOP TECHNICIAN Hypertrophy of breast HPV MRNA E6/E7 Routine 04/26/2016 8:16 PM CDT from Last 3 Months or Most Recently Relevant to Health Maintenance Results * MG DIAG W BRIAN BILAT DIGI (09/04/2019 8:34 AM WINDOWS LAPTOP TECHNICIAN) Anatomical Region Laterality Modality Breast Bilateral Mammography 09/04/2019 9:44 AM WINDOWS LAPTOP TECHNICIAN Impressions 09/04/2019 9:50 AM WINDOWS LAPTOP TECHNICIAN IMPRESSION: 1. NO MAMMOGRAPHIC OR SONOGRAPHIC EVIDENCE OF MALIGNANCY. 2. Dense retroareolar breast parenchyma without localizing right breast abnormality. 3. Nonpathologically enlarged intramammary lymph node at the left upper inner posterior depth breast. RECOMMENDATION: Annual screening mammography bilaterally in 12 months. Findings, impression, and recommendation were discussed with the patient immediately following exam completion. BI-RADS 2. [facility] MAMMOGRAM CLASSIFICATIONS: BI-RADS 0 - FURTHER IMAGING REQUIRED. BI-RADS 1 - NEGATIVE. BI-RADS 2 - BENIGN FINDING. BI-RADS 3 - PROBABLY BENIGN FINDING. BI-RADS 4 - SUSPICIOUS FOR MALIGNANCY, BIOPSY RECOMMENDED. BI-RADS 5 - HIGHLY SUGGESTIVE OF MALIGNANCY, BIOPSY RECOMMENDED. NEGATIVE IMAGING OF THE BREASTS SHOULD NOT PRECLUDE BIOPSY OF A CLINICALLY SUSPICIOUS LESION. Narrative 09/04/2019 9:50 AM WINDOWS LAPTOP TECHNICIAN EXAMINATION: MG ASHLI Ivy BRIAN BILAT DIGI, US BREAST LT BIRAD LTD, US BREAST RT BIRAD LTD [id number], [id number] INDICATIONS: Breast masses on clinical examination bilaterally. TECHNIQUE: Digital mammography bilaterally to include 3-D Tomosynthesis technique. This study was read with the assistance of a computer-aided detection system. HISTORY: No reported personal or first degree family history of breast cancer. No reported prior breast procedure or current breast complaint. COMPARISON: None. Baseline examination. TISSUE DENSITY: The breasts are heterogeneously dense, which may obscure small masses. FINDINGS: Circumscribed oval equal density reniform 5 mm mass at the upper slightly inner posterior depth breast with corresponding circumscribed oval hypoechoic 5 mm circumscribed mass with parallel orientation and preserved fatty bonita and targeted left breast sonogram. No evident architectural distortion. No suspicious microcalcification, focal asymmetry, or mass within either breast. Targeted sonographic evaluation of the right retroareolar breast, lower inner breast, and 9:00 breast demonstrates heterogeneous fibroglandular parenchyma without mass, fluid collection, or abnormal shadowing. Targeted sonographic evaluation of the left breast at the upper inner quadrant demonstrates no suspicious mass, fluid collection, or abnormal shadowing. No adenopathy. Annamarie Enrique [facility] MAMMO Final R esult * (ABNORMAL) HPV MRNA E6/E7 (04/26/2016 8:16 PM CDT) HPV MRNA E6/E7 DETECTED Reference range: NOT DETECTED This assay detects E6/E7 viral messenger RNA (mRNA) from 14 high-risk HPV types (16,18,31,33,35, 39,45,51, 52,56,58,59,66,6 8). This test was performed using the APTIMA(R) TMA HPV Assay ([employer] For additional information, please refer to http://education .Pronota/faq/LOY444 v1 Test Performed by [facility], [facility], [address] [place] [address] Romulo Delgado M.D., Ph.D., Director of Laboratories , [place] [id number] (A) [employer] TO EPIC CONVERSION 04/26/2016 8:16 PM CDT 04/26/2016 8:16 PM CDT Narrative [employer] TO EPIC CONVERSION - 05/01/2016 4:18 AM CDT Result Communication: Discussed results with patient Brendon Deluca MD PATHOLOGY/CYTOLOGY ORDERA BLES Final Result [employer] TO EPIC CONVERSION from Last 3 Months or Most Recently Relevant to Health Maintenance Insurance Care Teams Manufacturing Helper Relationship Specialty Start Date End Date Humaira Jalloh MD [address] [facility] [address] [place] [address] PCP - General FAMILY PRACTICE 07/27/19 Cady Cabrales MD [address] [place] [address] PLASTIC SURGERY 10/08/19
--- OUTSIDE RECORDS SUMMARY | 2025-05-15 16:53 | XMS_ITS | Encounter Summary ---
Author Organization [facility] Address [facility] [facility] [place] [address] Care Team Providers Care Proposal Consultant Name Role Phone Sabrina Wren RN Unavailable Unavailable Maggy Anton MD Unavailable Humaira Jalloh MD Primary Care Provider Robert Marlow MD Primary Care Provider [phone] Reason for Visit * Reason Onset Date Comments MEDICATION REFILL 12/28/2022 Encounter Details Date Type Department Care Team (Late st Contact Info) Description 12/28/2022 Refill [facility] [address] [place] [address], [place] [address] Binh Sam MD [address] [place] [address] [address] [place] [address] MEDICATION REFILL Social History Tobacco Use Types Packs/Day Years Used Date Smoking Tobacco: Former Cigarettes Q uit: 2017 Smokeless Tobacco: Never Comments:1 pkg weekly Alcohol Use Standard Drinks/Week Comments Yes 5 (1 standard drink = 0.6 oz pur e alcohol) socially wine Comments No Sex and Gender Information Value Date Recorded Sex Assigned at Not on file Legal Sex Female 1:19 PM CDT Gender Identity Not on file Sexual Orientation Not on file 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 Author Medication Management General On track( 021 10:02 AM BINGO WORKER) Idalia Cox RN Note: Expected end date: ongoing Interventions: Take all medications as prescribed Let your doctor know right away about any changes in your medications Make sure to request a refill of your medication at least one week prior to your last dose documented as of this encounter Visit Diagnoses Not on filedocumented in this encounter Care Teams Proposal Consultant Relationship Specialty Start Date End Date Humaira Jalloh MD [address] [place] [phone] PCP - General 07/03/19 07/27/23 Robert Marlow MD [address] [place] [address] PCP - General Family Medicine 07/28/23 Sabrina Wren, SHRUTHI Registered Nurse 01/25/18 Maggy Anton MD [facility] 04/06/18 documented as of this encounter
--- OUTSIDE RECORDS SUMMARY | 2025-05-15 16:53 | XMS_ITS | Encounter Summary ---
Author Organization [facility] Address [facility] [place] [address] Care Team Providers Care Brake Operator Sheet Metal Name Role Phone Brendon Deluca MD Primary Care Provider Sabrina Wren RN Unavailable Unavailable Maggy Anton MD Unavailable Sammy Chapman MD Primary Care Provider Humaira Jalloh MD Primary Care Provider Robert Marlow MD Primary Care Provider Encounter Details Date Type Department Care Team (Late st Contact Info) Description 04/28/2018 Telephone [facility] [address] [place] [address] Farrah Rosenthal MD [address] [facility] [address] [place] [id number] Social History Tobacco Use Types Packs/Day Years Used Date Smoking Tobacco: Former Smokeless Tobacco: Never Alcohol Use Standard Drinks/Week Comments Yes 0 (1 standard drink = 0.6 oz pure alcohol) 1 glass wine 5 days a week on average Comments Unknown Sex and Gender Information Value Date Recorded Sex Assigned at Not on file Legal Sex Female 1:19 PM CDT Gender Identity Not on file Sexual Orientation Not on file 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 Hasnt had filled in long time, has been using very PRN, but not out. [phone] documented in this encounter Plan of Treatment Not on file documented as of this encounter Visit Diagnoses Not on filedocumented in this encounter Care Teams Brake Operator Sheet Metal Relationship Specialty Start Date End Date Brendon Deluca MD [address] [place] [address] PCP - General 01/24/18 02/20/19 Sammy Chapman MD PCP - General 02/21/19 07/02/19 Humaira Jalloh MD [address] [place] [phone] PCP - General 07/03/19 07/27/23 Robert Marlow MD [address] [place] [address] PCP - General Family Medicine 07/28/23 Sabrina Wren, SHRUTHI Registered Nurse 01/25/18 Maggy Anton MD News Operations Manager Gastroenterology 04/06/18 documented as of this encounter
--- OUTSIDE RECORDS SUMMARY | 2025-05-15 16:53 | XMS_ITS | Encounter Summary ---
Author Organization [facility] Address [facility] [place] [address] Care Team Providers Care Structural Biologist Name Role Phone Brendon Deluca MD Primary Care Provider [phone] Sabrina Wren RN Unavailable Unavailable Maggy Anton MD Unavailable Sammy Chapman MD Primary Care Provider Humaira Jalloh MD Primary Care Provider Robert Marlow MD Primary Care Provider [phone] Encounter Details Date Type Department Care Team (Late st Contact Info) Description 12/11/2018 Lab Requisition [facility] Care DermPath Lab [address] [facility] [place] [address] Humaira Jalloh MD [address] [place] [id number] Social History Tobacco Use Types Packs/Day Years [...] Industry Job Start Date Job End Date [employer] Not on file Not on file Not on f ile documented as of this encounter Plan of Treatment Not on file documented as of this encounter Procedures Procedure Name Priority Date/Time Associated Diagnosis Comments DERMATOPATHOLOGY Routine 12/07/2018 12:0 0 AM CDT documented in this encounter Results * DERMATOPATHOLOGY (12/07/2018 12:00 AM CDT) Case Report Dermatopathology Report Case: [id number] Authorizing Provider: Humaira Jalloh MD Collected: 12/07/2018 12:00 AM Pathologist: Kelsey Chen MD Received: 12/11/2018 10:24 AM Specimens: A) - Skin, right great toenail B) - Skin, left great toenail 9 12:04 PM CDT DERMATOPATHOLOGY LABORATORY Final Diagnosis Specimen A. SKIN, right great toenail: COMPACT KERATIN CONSISTENT WITH NAIL PLATE WITH BACTERIA (L60.8) Specimen B. SKIN, left great toenail: COMPACT KERATIN CONSISTENT WITH NAIL PLATE (L60.8) 9 12:04 PM CDT DERMATOPATHOLOGY LABORATORY at 1204 CDT Clinical History A-B: Onychomycosis. 9 12:04 PM CDT DERMATOPATHOLOGY LABORATORY Gross Description Specimen A: Received is one formalin filled container labeled with the patient's name and designated right great toenail. The specimen consists of a nail clipping measuring [id number]. Specimen B: Received is one formalin filled container labeled with the patient's name and designated left great toenail. The specimen consists of a nail clipping measuring [id number]. 9 12:04 PM CDT DERMATOPATHOLOGY LABORATORY Microscopic Description Specimen A. SKIN, right great toenail: Sections show nail plate. Periodic acid-Apolonia (PAS) stained sections do not highlight fungal organisms. Bacteria are present. Specimen B. SKIN, left great toenail: Sections show nail plate. Periodic acid-Apolonia (PAS) stained sections do not highlight fungal organisms. 9 12:04 PM CDT DERMATOPATHOLOGY LABORATORY Disclaimer An external and internal positive and negative controls are appropriate for the histochemical, immunohistochemical and immunofluorescence stain(s) in this case (if any), except where stated explicitly. The performance characteristics of the stain(s) cited in this report were developed and its performance characteristic determined by the Dermatopathology Laboratory at [facility], directed by Dr. Mary Chen. These tests need not be, and therefore are not, approved by the [place] Food and Drug Administration. The tests are used for clinical purposes. Billing Codes Specimen Charges Stain Charges 11583 15621 1 1 84950 33826 1 1 9 12:04 PM CDT DERMATOPATHOLOGY LABORATORY Embedded Images 9 12:04 PM CDT DERMATOPATHOLOGY LABORATORY Pathology/Cytology TISSUE SPECIMEN FROM SKIN / Unknown 12/07/2018 12/11/2018 10:24 AM CDT Miscellaneous samples (specimen) TISSUE SPECIMEN FROM SKIN / Unknown 12/07/2018 12/11/2018 10:24 AM CDT Humaira Jalloh MD LAB - PATHOLOGY/CYTOLOGY ORD ERABLES Final Result DERMATOPATHOLOGY LABORATORY [facility] - Department of Dermatology [address] [place] [address] 5th Floor Lab [address] [phone] documented in this encounter Visit Diagnoses Not on filedocumented in this encounter Care Teams Structural Biologist Relationship Specialty Start Date End Date Brendon Deluca MD [address] [place] [phone] PCP - General 01/24/18 02/20/19 Sammy Chapman MD PCP - General 02/21/19 07/02/19 Humaira Jalloh MD [address] [place] [phone] PCP - General 07/03/19 07/27/23 Robert Marlow MD [address] [place] [phone] PCP - General Family Medicine 07/28/23 Sabrina Wren, SHRUTHI Registered Nurse 01/25/18 Maggy Anton MD Fish And Wildlife Technician Gastroenterology 04/06/18 documented as of this encounter
--- OUTSIDE RECORDS SUMMARY | 2025-05-15 16:53 | XMS_ITS | Encounter Summary ---
Author Organization [facility] Address [facility] [facility] [place] [address] Care Team Providers Care Dress Marker Name Role Phone Brendon Deluca MD Primary Care Provider Sabrina Wren RN Unavailable Unavailable Maggy Anton MD Unavailable Sammy Chapman MD Primary Care Provider Humaira Jalloh MD Primary Care Provider [phone] Robert Marlow MD Primary Care Provider [phone] Reason for Visit * Reason Onset Date Comments Refill Request 04/18/2018 Encounter Details Date Type Department Care Team (Late st Contact Info) Description 04/18/2018 Refill [facility] [address] [place] [address] Farrah Rosenthal MD [address] [facility] [address] [place] [phone] Refill Request Social History Tobacco Use Types Packs/Day Years [...] Industry Job Start Date Job End Date [employer] Not on file Not on file Not on f ile documented as of this encounter Miscellaneous Notes * Telephone Encounter - Jessica Clayton - 04/18/2018 2:44 PM CDT LF 01/24/18 No follow up Jessica Clayton * Telephone Encounter - Bertha Garber - 04/18/2018 10:50 AM CDT Refill request for spironolactone (ALDACTONE) 100 MG tablet ( documented in this encounter Plan of Treatment Not on file documented as of this encounter Visit Diagnoses Not on filedocumented in this encounter Care Teams Dress Marker Relationship Specialty Start Date End Date Brendon Deluca MD [address] [place] [phone] PCP - General 01/24/18 02/20/19 Sammy Chapman MD PCP - General 02/21/19 07/02/19 Humaira Jalloh MD [address] [place] [phone] PCP - General 07/03/19 07/27/23 Robert Marlow MD [address] [place] [address] PCP - General Family Medicine 07/28/23 Sabrina Wren, RN Registered Nurse 01/25/18 Maggy Anton MD Bilingual Speech Therapist Gastroenterology 04/06/18 documented as of this encounter
--- OUTSIDE RECORDS SUMMARY | 2025-05-15 16:53 | XMS_ITS | Encounter Summary ---
Author Organization [facility] Address [facility] [facility] [place] [address] Care Team Providers Care Purification Operator Helper Name Role Phone Sabrina Wren RN Unavailable Unavailable Maggy Anton MD Unavailable Humaira Jalloh MD Primary Care Provider [phone] Robert Marlow MD Primary Care Provider Encounter Details Date Type Department Care Team (Late st Contact Info) Description 07/23/2019 Telephone [facility] [address] [place] [address] Cady Cabrales MD [address] [place] [address] Social History Tobacco Use Types Packs/Day Years Used Date Smoking Tobacco: Former Cigarettes Q uit: 2017 Smokeless Tobacco: Never Comments:1 pkg weekly Alcohol Use Standard Drinks/Week Comments Yes 5 (1 standard drink = 0.6 oz pure alcohol) 1 glass wine 5 days a week on average Comments No Sex and Gender Information Value Date Recorded Sex Assigned at Not on file Legal Sex Female 1:19 PM CDT Gender Identity Not on file Sexual Orientation Not on file 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 documented in this encounter Plan of Treatment Not on file documented as of this encounter Goals Goal Patient Goal Type Associated Problems Recent Progress Patient-Stated? Author Medication Management General On track( 021 10:02 AM BENDER HAND) Idalia Cox RN Note: Expected end date: ongoing Interventions: Take all medications as prescribed Let your doctor know right away about any changes in your medications Make sure to request a refill of your medication at least one week prior to your last dose documented as of this encounter Visit Diagnoses Not on filedocumented in this encounter Care Teams Purification Operator Helper Relationship Specialty Start Date End Date Humaira Jalloh MD [address] [place] [phone] PCP - General 07/03/19 07/27/23 Robert Marlow MD [address] [place] [phone] PCP - General Family Medicine 07/28/23 Sabrina Wren, SHRUTHI Registered Nurse 01/25/18 Maggy Anton MD Packer Operator Automatic Gastroenterology 04/06/18 documented as of this encounter
--- OUTSIDE RECORDS SUMMARY | 2025-05-15 16:53 | XMS_ITS | Clinical Summary ---
Author Organization [facility] Address [address] [place] [phone] Phone Care Team Providers Care Supervisor Firearms Name Role Phone Robert Marlow MD Primary Care Provider [phone] Allergies Active Allergy Reactions Criticality Noted Date Comments [place] Anaphylaxis High 07/14/2016 Buspirone Other (See Comments) High 09/25/2019 tachycardia tachycardia Iodine Other (See Comments) 11/25/2017 Iohexol Anaphylaxis High 07/28/2014 Methotrexate Anaphylaxis High 12/01/2021 Oxycodone Other (See Comments) Low 07/29/2014 HYPOTENSIVE unsure Oxycodone-Acetaminophe n Unknown 06/29/2016 Propoxyphene Seizure High 04/02/2015 Seizure, hypotension Medications valACYclovir (VALTREX) 1 gram tablet Take 1 mg by mouth Continuous as needed. 8 Active spironolactone (ALDACTONE) 100 mg tablet Take 100 mg by mouth daily. 5 Active folic acid (FOLVITE) 1 mg tablet Take 1 mg by mouth daily. 1 Active biotin 10 mg Tablet Take 1 Tablet by mouth daily. Active ascorbic acid, vitamin C, (VITAMIN C) 1,000 mg Tablet Take 1,000 mg by mouth 1 time daily as needed. 1 Active ALPRAZolam (XANAX) 0.25 mg tablet Take 0.25 mg by mouth Continuous as needed. 1 Active triamcinolone acetonide (KENALOG) 0.1 % Cream 2 Active tretinoin (RETIN-A) 0.05 % Cream 2 Active EPINEPHrine (EPIPEN) 0.3 mg/0.3 mL Auto-Injector Inject 0.3 mL (0.3 mg) by intramuscular injection 1 time daily as needed for Anaphylaxis. 1 Each 2 Active hyoscyamine sulfate 0.125 mg tablet Take 1 Tablet (0.125 mg) by mouth every 4 hours as needed for Spasm. 540 Tablet 3 Active cetirizine (ZyrTEC) 10 mg tablet Take 1 Tablet (10 mg) by mouth daily. 90 Tablet 3 Active fluticasone propionate (FLONASE) 50 mcg/spray [place], Suspension nasal inhaler SHAKE LIQUID AND USE 1 SPRAY IN EACH NOSTRIL DAILY 3 Active albuterol sulfate HFA 90 mcg/actuation aerosol inhaler 3 Active ibuprofen (ADVIL;MOTRIN) 100 mg/5 mL suspension 4 Active ergocalciferol (VITAMIN D2) 50,000 unit capsuleIndicat ions:Vitamin D deficiency TAKE ONE CAPSULE BY MOUTH EVERY 7 DAYS FOR 60 DAYS, THEN 1 CAPSULE EVERY 30 DAYS 17 Capsule 4 Active ondansetron (ZOFRAN ODT) 8 mg Tablet, Rapid Dissolve DISSOLVE 1 TABLET ON THE TONGUE EVERY 8 HOURS NEEDED FOR NAUSEA OR VOMITING 30 Tablet 1 5 Active predniSONE (DELTASONE) 50 mg tablet Take 1 Tablet (50 mg) by mouth 3 times daily as needed (for IV contrast prophylais). 3 Tablet 5 Active risankizumab-r zaa (Skyrizi) 360 mg/2.4 mL (150 mg/mL) wearable injector Inject 2.4 mL (360 mg) by subcutaneous injection every 8 weeks. 2.4 mL 5 5 Active pantoprazole (PROTONIX) 20 mg Tablet, Delayed Release (E.C.) Take 1 Tablet (20 mg) by mouth 2 times daily. 180 Tablet 3 5 Active ondansetron (ZOFRAN) 8 mg Tablet Take 1 Tablet (8 mg) by mouth 2 times daily. 120 Tablet 3 5 Active Active Problems Problem Noted Date Diagnosed Date Crohn's disease with complication 01/25/2018 Encounters Date Type Department Care Team Description 04/30/2025 External Device Data STL ABSTRACTION Provider, Abstract 04/10/2025 External Device Data STL ABSTRACTION Provider, Abstract 04/10/2025 External Device Data [place] ABSTRACTION Provider, Abstract 04/[facility] [place] [address] [place] [address] Maggy Anton MD 04/10/2025 Telephone [facility] [place] [address] [place] [address] Maggy Anton MD Medication Refill 04/10/2025 Refill [facility] [place] [address] [place] [address] Maggy Anton MD 04/09/2025 Refill [facility] [place] [address] [place] [address] Maggy Anton MD 03/13/2025 External Device Data STL ABSTRACTION Provider, Abstract 03/01/2025 [facility] [address] [facility] [address] [place] [phone] Maggy Anton MD 03/01/2025 Refill [facility] [place] [address] [place] [address] Maggy Anton MD 02/26/2025 External Device Data STL ABSTRACTION Provider, Abstract 02/19/2025 External Device Data STL ABSTRACTION Provider, Abstract 02/14/2025 External Device Data STL ABSTRACTION Provider, Abstract 02/13/2025 External Device Data STL ABSTRACTION Provider, Abstract from Last 3 Months Family History Medical History Relation Name Comments Colon Cancer Neg Hx Social History Tobacco Use Types Packs/Day Years Used Date Smoking Tobacco: Never Smokeless Tobacco: Never Tobacco Cessation:Counseling Given: Not Answered Alcohol Use Standard Drinks/Week Comments Yes 0 (1 standard drink = 0.6 oz pur e alcohol) occ. Comments Unknown Sex and Gender Information Value Date Recorded Sex Assigned at Not on file Legal Sex Female 9:36 AM CDT Gender Identity Not on file Sexual Orientation Not on file Last Filed Vital Signs Vital Sign Reading Time Taken Comments Blood Pressure 126/84 02/29/2024 10:29 AM CDT Pulse 98 02/29/2024 10:29 AM CDT Temperature 36.7 C (98.1 F) 11/05/2024 9:03 AM MEDICATION SPECIALIST Respiratory Rate 18 11/05/2024 9:03 AM MEDICATION SPECIALIST Oxygen Saturation 96% 11/05/2024 9:03 AM MEDICATION SPECIALIST Inhaled Oxygen Concentration - - Weight 60.3 kg (133 lb) 11/05/2024 9:03 AM MEDICATION SPECIALIST Height 155.4 cm (5' 1.2) 11/05/2024 9:03 AM MEDICATION SPECIALIST Body Mass Index 24.97 11/05/2024 9:03 AM MEDICATION SPECIALIST Plan of Treatment Upcoming Encounters Date Type Department Care Team (Late st Contact Info) Description 07/24/2025 8:40 AM CDT Office Visit [facility] Gastroenterology [facility] [id number] [place] [address] [address] [place] [place] [phone] [place] [address] [facility] [address] [place] [address] Health Maintenance Due Date Last Done Comments HPV VACCINES (1 - 3-dose series) 1995 DTAP/TDAP/TD VACCINES (1 - Tdap) 1999 HEPATITIS B VACCINES (1 of 3 - 19+ 3-dose series) 08/26 HPV/Cotest (21-29) 2001 CERVICAL CANCER SCREENING 2010 HPV/Cotest (30-65) 2010 PAP SMEAR 2010 BREAST CANCER SCREENING 2020 09/04/2019 INFLUENZA VACCINE (#1) 2025 07/04/2019 Procedures Procedure Name Priority Date/Time Associated Diagnosis Comments VITAMIN D 25 HYDROXY Routine 04/23/2025 1:55 PM CDT Crohn's disease of small intestine without complication (CMS/HCC) VITAMIN B12 AND FOLATE Routine 04/23/2025 1:55 PM CDT Crohn's disease of small intestine without complication (CMS/HCC) QUANTIFERON TB GOLD Routine 04/23/2025 1 :55 PM CDT Crohn's disease of small intestine without complication (CMS/HCC) IRON, TIBC, AND PERCENT SATURATION Routine 04/23/2025 1:55 PM CDT Crohn's disease of small intestine without complication (CMS/HCC) COMPREHENSIVE METABOLIC PANEL Routine 04/23/2025 1:55 PM CDT Crohn's disease of small intestine without complication (CMS/HCC) CBC WITH DIFFERENTIAL Routine 04/23/2025 1:55 PM CDT Crohn's disease of small intestine without complication (CMS/HCC) C-REACTIVE PROTEIN Routine 04/23/2025 1: 55 PM CDT Crohn's disease of small intestine without complication (CMS/HCC) from Last 3 Months Results * QUANTIFERON TB GOLD (04/23/2025 1:55 PM CDT) QUANTIFERON TB GOLD PLUS NEGATIVE NEGATIVE [facility] Comment: Negative test result. M. tuberculosis complex infection unlikely. NIL 0.02 IU/mL [facility] MITOGEN-NIL >10.00 IU/mL [facility] TB1 AG - NIL 0.00 IU/mL [facility] TB2 AG - NIL <0.00 IU/mL [facility] Comment: The Nil tube value reflects the background interferon gamma immune response of the patient's blood sample. This value has been subtracted from the patient's displayed TB and Mitogen results. Lower than expected results with the Mitogen tube prevent false-negative Quantiferon readings by detecting a patient with a potential immune suppressive condition and/or suboptimal pre-analytical specimen handling. The TB1 Antigen tube is coated with the M. tuberculosis-specific antigens designed to elicit responses from TB antigen primed CD4+ helper T-lymphocytes. The TB2 Antigen tube is coated with the M. tuberculosis-specific antigens designed to elicit responses from TB antigen primed CD4+ helper and CD8+ cytotoxic T-lymphocytes. For additional information, please refer to https://education.[employer]/faq/ZUM689 (This link is being provided for informational/ educational purposes only.) Test Performed at: [address] [address] Tiffanie Priest MD Blood 04/23/2025 1:55 PM CDT 04/23/2025 1:55 PM CDT Maggy Anton MD CHEMISTRY ORDERABLES Kassidy l Result Performing Organization Address [facility]/ZIP Co de Phone Number [facility] [phone] [facility] [address] [address] * VITAMIN B12 AND FOLATE (04/23/2025 1:55 PM CDT) [facility] VITAMIN B12 549 200 - 1100 pg/mL [facility] FOLATE, SERUM 7.6 ng/mL [facility] Comment: Reference Range Low: <3.4 Borderline: 3.4-5.4 Normal: >5.4 Test Performed at: [facility] [address] NaraMargot Priest MD Blood 04/23/2025 1:55 PM CDT 04/23/2025 1:55 PM CDT Maggy Anton MD CHEMISTRY ORDERABLES Kassidy l Result Performing Organization Address City/[facility]/ZIP Co de Phone Number [facility] [phone] [facility] [employer] [address] * IRON, TIBC, AND PERCENT SATURATION (04/23/2025 1:55 PM CDT) [facility] IRON 103 40 - 190 mcg/dL [facility] TIBC 392 250 - 450 mcg/dL (calc) [facility] IRON % SATURATION 26 16 - 45 % (calc) [facility] Comment: Test Performed at: [facility] [address] [facility] [place] [address] Tiffanie Priest MD Blood 04/23/2025 1:55 PM CDT 04/23/2025 1:55 PM CDT us Maggy Anton MD CHEMISTRY ORDERABLES Kassidy l Result [facility] [phone] [facility] [address] [place] [address] * CBC WITH DIFFERENTIAL (04/23/2025 1:55 PM CDT) WBC 7.8 3.8 - 10.8 Thousand/u L [facility] RBC 4.22 3.80 - 5.10 Million/uL [facility] HEMOGLOBIN 13.8 11.7 - 15.5 g/dL [facility] HEMATOCRIT 42.2 35.0 - 45.0 % [facility] MCV 100.0 80.0 - 100.0 fL [facility] MCH 32.7 27.0 - 33.0 pg [facility] MCHC 32.7 32.0 - 36.0 g/dL [facility] Comment: For adults, a slight decrease in the calculated MCHC value (in the range of 30 to 32 g/dL) is most likely not clinically significant; however, it should be interpreted with caution in correlation with other red cell parameters and the patient's clinical condition. RDW 11.2 11.0 - 15.0 % [facility] PLATELETS 272 140 - 400 Thousand/u L [facility] MPV 9.4 7.5 - 12.5 fL [facility] NEUTROPHIL ABSOLUTE 4,742 1,500 - 7,800 cells/uL [facility] LYMPHOCYTE ABSOLUTE 2,246 850 - 3,900 cells/uL [facility] MONOCYTE ABSOLUTE 671 200 - 950 cells/uL [facility] EOSINOPHIL ABSOLUTE 94 15 - 500 cells/uL [facility] BASOPHILS ABSOLUTE 47 0 - 200 cells/uL [facility] NEUTROPHIL 60.8 % [facility] LYMPHOCYTES 28.8 % [facility] MONOCYTE 8.6 % [facility] EOSINOPHILS 1.2 % [facility] BASOPHILS 0.6 % [facility] Comment: Test Performed at: [facility] [address] Tiffanie Priest MD Blood 04/23/2025 1:55 PM CDT 04/23/2025 1:55 PM CDT us Maggy Anton MD HEMATOLOGY ORDERABLES Fin al Result [facility] [phone] [facility] [employer] [address] * VITAMIN D 25 HYDROXY (04/23/2025 1:55 PM CDT) VITAMIN D, 25 OH, TOTAL 42 30 - 100 ng/mL [facility] Comment: Vitamin D Status 25-OH Vitamin D: Deficiency: <20 ng/mL Insufficiency: 20 - 29 ng/mL Optimal: > or = 30 ng/mL For 25-OH Vitamin D testing on patients on D2-supplementation and patients for whom quantitation of D2 and D3 fractions is required, the [facility] 25-OH VIT D, (D2,D3), LC/MS/MS is recommended: order code 58413 (patients >2yrs). See Note 1 Note 1 For additional information, please refer to http://education.[employer]p [employer].Dropifi/faq/BPK644 (This link is being provided for informational/ educational purposes only.) Test Performed at: [facility] [address] [place] [address] Tiffanie Priest MD Blood 04/23/2025 1:55 PM CDT 04/23/2025 1:55 PM CDT us Maggy Anton MD CHEMISTRY ORDERABLES Kassidy l Result Performing Organization Address City/[facility]/ZIP Co de Phone Number [facility] [phone] [facility] [address] [place] [address] * C-REACTIVE PROTEIN (04/23/2025 1:55 PM CDT) [facility] CRP <3.0 <8.0 mg/L [facility] Comment: Test Performed at: [facility] [address] [place] [address] Tiffanie Priest MD Blood 04/23/2025 1:55 PM CDT 04/23/2025 1:55 PM CDT Maggy Anton MD CHEMISTRY ORDERABLES Kassidy l Result Performing Organization Address [facility] Co de Phone Number [facility] [phone] [facility] [address] [place] [address] * COMPREHENSIVE METABOLIC PANEL (04/23/2025 1:55 PM CDT) [facility] GLUCOSE 91 65 - 99 mg/dL [facility] Comment: Fasting reference interval BUN 12 7 - 25 mg/dL [facility] CREATININE 0.63 0.50 - 0.99 mg/dL [facility] GFR 112 > OR = 60 mL/min/1. 73m2 [facility] BUN/CREAT RATIO SEE NOTE: 6 - 22 (calc) [facility] Comment: Not Reported: BUN and Creatinine are within reference range. SODIUM 137 135 - 146 mmol/L [facility] POTASSIUM 3.6 3.5 - 5.3 mmol/L [facility] CHLORIDE 99 98 - 110 mmol/L [facility] CO2 29 20 - 32 mmol/L [facility] CALCIUM 9.5 8.6 - 10.2 mg/dL [facility] TOTAL PROTEIN 7.1 6.1 - 8.1 g/dL [facility] ALBUMIN 4.4 3.6 - 5.1 g/dL [facility] GLOBULIN 2.7 1.9 - 3.7 g/dL (calc) [facility] ALBUMIN/GLOBULIN RATIO 1.6 1.0 - 2.5 (calc) [facility] BILIRUBIN TOTAL 0.4 0.2 - 1.2 mg/dL [facility] ALKALINE PHOSPHATASE 60 31 - 125 U/L [facility] AST 17 10 - 30 U/L [facility] ALT 18 6 - 29 U/L [facility] Comment: Test Performed at: [facility] [address] [address] Tiffanie Priest MD Blood 04/23/2025 1:55 PM CDT 04/23/2025 1:55 PM CDT us Maggy Anton MD CHEMISTRY ORDERABLES Kassidy l Result [facility] [phone] [facility] [address] [address] from Last 3 Months Insurance [employer] Directives For more information, please contact: [phone] * Full Code (Latest Code Status on File) Date Activated Date Inactivated Comments 06/28/2023 10:59 AM 06/28/2023 3:05 PM * Full Code Date Activated Date Inactivated Comments 02/01/2023 7:32 AM 02/01/2023 11:35 AM Care Teams Supervisor Firearms Relationship Specialty Start Date End Date Robert Marlow MD [address] [place] [address] PCP - General Family Practice 09/22/22
--- OUTSIDE RECORDS SUMMARY | 2025-05-15 16:53 | XMS_ITS | Encounter Summary ---
Author Organization [facility] Address [facility] [facility] [place] [address] Care Team Providers Care Grocery Team Member Name Role Phone Sabrina Wren RN Unavailable Unavailable Maggy Anton MD Unavailable Humaira Jalloh MD Primary Care Provider [phone] Robert Marlow MD Primary Care Provider [phone] Reason for Visit * Reason Onset Date Comments Refill Request 12/28/2022 Encounter Details Date Type Department Care Team (Late st Contact Info) Description 12/28/2022 Telephone [facility] [address] [place] [address] Binh Sam MD [facility] [place] [address] Refill Request Social History Tobacco Use Types [...] 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 Pt still needs medication refilled. Pt daughter is off in college and won't be able to have appts before then because there areno summer appts available. Pt is still interested in meds. Pt can be reached at [phone]. documented in this encounter Plan of Treatment Not on file documented as of this encounter Goals Goal Patient Goal Type Associated Problems Recent Progress Patient-Stated? Author Medication Management General On track( 021 10:02 AM RESIDENT CARE PROVIDER) Idalia Cox, RN Note: Expected end date: ongoing Interventions: Take all medications as prescribed Let your doctor know right away about any changes in your medications Make sure to request a refill of your medication at least one week prior to your last dose documented as of this encounter Visit Diagnoses Not on filedocumented in this encounter Care Teams Grocery Team Member Relationship Specialty Start Date End Date Humaira Jalloh MD [address] [place] [phone] PCP - General 07/03/19 07/27/23 Robert Marlow MD [address] [place] [address] PCP - General Family Medicine 07/28/23 Sabrina Wren, SHRUTHI Registered Nurse 01/25/18 Maggy Anton MD [facility] 04/06/18 documented as of this encounter
--- OUTSIDE RECORDS SUMMARY | 2025-05-15 16:53 | XMS_ITS | Encounter Summary ---
Author Organization [facility] Address [facility] [place] [address] Care Team Providers Care Spent Grain Dryer Name Role Phone Sabrina Wren RN Unavailable Unavailable Maggy Anton MD Unavailable Humaira Jalloh MD Primary Care Provider Robert Marlow MD Primary Care Provider [phone] Reason for Visit * Reason Onset Date Comments Question 08/22/2019 Patient's ernie leonard is active Encounter Details Date Type Department Care Team (Late st Contact Info) Description 08/22/2019 Telephone [facility] Plastic Surgery [address] [place] [address] Cady Cabrales MD [address] [place] [address] Question (Patient's is active ) Social History Tobacco Use Types Packs/Day Years [...] 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 Author Medication Management General On track( 021 10:02 AM LINEN KEEPER) Idalia Cox RN Note: Expected end date: ongoing Interventions: Take all medications as prescribed Let your doctor know right away about any changes in your medications Make sure to request a refill of your medication at least one week prior to your last dose documented as of this encounter Visit Diagnoses Not on filedocumented in this encounter Care Teams Spent Grain Dryer Relationship Specialty Start Date End Date Humaira Jalloh MD [address] [place] [phone] PCP - General 07/03/19 07/27/23 Robert Marlow MD [address] [place] [address] PCP - General Family Medicine 07/28/23 Sabrina Wren, SHRUTHI Registered Nurse 01/25/18 Maggy Anton MD [facility] 04/06/18 documented as of this encounter
--- OUTSIDE RECORDS SUMMARY | 2025-05-15 16:53 | XMS_ITS | Clinical Summary ---
Author Organization [facility] [employer] Address [facility] [place] [address] Care Team Providers Care Motor Route Carrier Name Role Phone Sabrina Wren RN Unavailable Unavailable Maggy Anton MD Unavailable Robert Marlow MD Primary Care Provider [phone] Source Comments [facility],non-owned Affiliates and Associated Physician Practices is amultiple site organization consisting of ambulatory clinics and hospital sitesin [place], [place], [place] and [place]. This disclosure is being madepursuant to the Care Everywhere program and may not contain all information available regarding this patient. Last updated 18.[facility] Allergies Active Allergy Reactions Criticality Noted Date Comments Bee Anaphylaxis High 07/14/2016 Buspirone Other,Unknown High 09/25/2019 tachycardia Contrast-Iodinated Agents For Ct/Other Anaphylaxis High 06/22/2019 Propoxyphene N-Apap Seizures High 04/02/2015 Seizure, hypotension Iodine Other 11/25/2017 Iohexol Anaphylaxis High 07/28/2014 Methotrexate Anaphylaxis High 12/01/2021 throat swelling, difficulty breathing, ANAPHYLAXIS Oxycodone Other Low 07/29/2014 HYPOTENSIVE unsure Oxycodone-Acetaminophen Unknown 06/29/2016 Propoxyphene Seizures High 04/02/2015 Seizure, hypotension Medications * Be aware that medications may not be up to date on this document. Alwaysverify current medications with the patient. vitamin C (ASCORBIC ACID) 1000 MG tablet Take 1 (one) tablet by mouth every 24 hours as needed Active CRANBERRY PO Take 400 mg by mouth once daily Active raNITIdine (ZANTAC) 150 MG tablet Take 1 tablet by mouth 2 times daily 60 tablet 10/21/19 20 Active Additional Information Patient not taking.Reported on 12/01/2021 Melatonin 3 MG Take by mouth as needed Active traMADol (ULTRAM) 50 MG tablet Take 1 (one) tablet by mouth every 6 hours as needed for Pain Active Multiple Vitamins-Minerals (MULTIVITAMIN ADULT PO) Active Probiotic Product (PROBIOTIC DAILY PO) Active valACYclovir (VALTREX) 1 GM tablet as needed 07/01/20 Active Biotin 13935 MCG TABS Take 1 (one) tablet by mouth Active folic acid (FOLVITE) 1 MG tablet Take 1 tablet by mouth once daily 90 tablet 4 10/01/19 21 Active Additional Information Patient not taking.Reported on 12/01/2021 Methotrexate 25 MG/ML SOSYIndications:Procedures Rn hn's disease with complication, unspecified gastrointestinal tract location (HCC) Inject 25 mg subcutaneously every 7 days 12 mL 2 10/24/19 21 Active Additional Information Patient not taking.Reported on 12/01/2021 SYRINGE-NEEDLE, DISP, 3 ML 25G X 5/8 3 ML MISCIndications:Procedures Rn hn's disease with complication, unspecified gastrointestinal tract location (HCC) Use 1 mL every 7 days 12 Each 2 10/24/19 21 Active Additional Information Patient not taking.Reported on 12/01/2021 ustekinumab (STELARA) 90 MG/ML prefilled syringe INJECT 1 ML UNDER THE SKIN EVERY 28 DAYS (CROHNS DISEASE) 3 syringe 3 11/29/19 21 Active pantoprazole EC (PROTONIX) 20 MG tabletIndications:G astroesophageal reflux disease without esophagitis Take 2 (two) tablets by mouth 2 times daily 120 tablet 11 12/18/19 21 Active cetirizine (ZYRTEC) 10 MG tabletIndications:I tching Take 1 (one) tablet by mouth once daily 90 tablet 3 12/18/19 21 Active hyoscyamine 0.125 MG tabletIndications:N ausea and vomiting, intractability of vomiting not specified, unspecified vomiting type,Crohn's disease with complication, unspecified gastrointestinal tract location (HCC) Take 1 (one) tablet by mouth every 4 hours as needed for Spasms 90 tablet 3 12/20/19 21 Active ondansetron (ZOFRAN) 8 MG tabletIndications:N ausea and vomiting, intractability of vomiting not specified, unspecified vomiting type,Crohn's disease with complication, unspecified gastrointestinal tract location (HCC) Take 1 (one) tablet by mouth 2 times daily as needed for Nausea/Vomiting 180 tablet 3 12/20/19 21 Active fluconazole (DIFLUCAN) 150 MG tablet 02/19/20 20 Active EPINEPHrine (EPIPEN) 0.3 MG/0.3ML auto-injector pen 01/01/20 21 Active ALPRAZolam (XANAX) 1 MG tablet Take 1 (one) tablet by mouth once daily as needed FOR ANXIETY 03/16/20 21 Active ketoconazole (Nizoral) 2 % shampoo Work into lather, leave on 3-5 minutes before rinse. Use qd at first, can lower frequency after improved. 90 DS 360 mL 12/29/19 23 Active fluocinonide (Lidex) 0.05 % solution Apply to scalp twice daily prn. 90 days supply. 180 mL 12/29/19 23 Active albuterol HFA (Proventil; Ventolin; Proair) 108 (90 Base) MCG/ACT inhaler 06/09/20 23 Active amitriptyline (Elavil) 10 MG tablet 05/06/20 22 Active doxycycline hyclate (Vibramycin) 100 MG capsule 02/22/20 24 Active vitamin D, ergocalciferol, (Drisdol) 1.25 MG (50656 UT) capsule 01/20/20 24 Active fluticasone propionate (Flonase) 50 MCG/ACT nasal spray 05/31/20 23 Active ibuprofen (Advil; Motrin) 100 MG/5ML suspension 09/28/19 24 Active loratadine (Claritin) 10 MG tablet Take 1 (one) tablet by mouth once daily 04/27/20 23 Active predniSONE (Deltasone) 50 MG tablet Take 1 (one) tablet by mouth SEE ADMIN INSTRUCTIONS 02/29/20 24 Active Skyrizi 360 MG/2.4ML SOCT 08/15/20 23 Active Clenpiq 10-3.5-12 MG-GM -GM/175ML SOLN 175 ml solution 04/26/20 23 Active triamcinolone acetonide (Kenalog) 0.1 % cream 02/22/20 24 Active spironolactone (Aldactone) 100 MG tabletIndications:A cne vulgaris Take 1 (one) tablet by mouth once daily 90 day supply 90 tablet 11 03/13/20 24 Active tretinoin (Retin-A) 0.05 % creamIndications:Ac ne vulgaris Apply a pea sized drop to entire face at bedtime. 90 day supply 135 g 03/13/20 24 Active Active Problems Problem Noted Date Diagnosed Date Facial rhytids 06/10/2020 Painful scar 06/10/2020 S/P bilateral breast reduction 10/16/2019 Near syncope 10/08/2019 Acne vulgaris 06/22/2019 Other seborrheic dermatitis 06/22/2019 Chronic urticaria 06/22/2019 Crohn's disease with complication 01/25/2018 Itching 09/13/2015 Resolved Problems Problem Noted Date Diagnosed Date Resolved Date Postoperative hemorrhage of subcutaneous tissue following non-dermatologic procedure 10/08/2019 03/11/2020 Macromastia 09/25/2019 10/16/2019 Rash 06/23/2019 07/21/2019 Immunizations Immunization Administration Dates Next Due INFLUENZA VACCINE, QUADR. (F LUZONE; FLULAVAL; FLUARIX; AFLURIA QUADRIVALENT; 6MO+), 0.5 ML (IIV4) 07/04/2019 Family History Medical History Relation Name Comments None Known Brother None Known Father None Known Maternal Aunt None Known Maternal Grandfather None Known Maternal Grandmother None Known Maternal Uncle None Known Mother None Known Other None Known Paternal Aunt None Known Paternal Grandfather None Known Paternal Grandmother None Known Paternal Uncle None Known Sister Asthma Neg Hx CVA Neg Hx Cancer - Breast Neg Hx Cancer - Other Neg Hx Cancer - Skin, Melanoma Neg Hx Cancer - Skin, Non Melanoma Neg Hx Eczema Neg Hx Hemophilia Neg Hx Psoriasis Neg Hx Relation Name Status Comments Brother Father Maternal Aunt Maternal Grandfather Maternal Grandmother Maternal Uncle Mother Other Paternal Aunt Paternal Grandfather Paternal Grandmother Paternal Uncle Sister Social History Tobacco Use Types Packs/Day Years Used Date Smoking Tobacco: Former Cigarettes Q uit: 2017 Smokeless Tobacco: Never Tobacco Cessation:Counseling Given: Not Answered Comments:1 pkg weekly Alcohol Use Standard Drinks/Week Comments Yes 5 (1 standard drink = 0.6 oz pur e alcohol) socially wine Comments No Sex and Gender Information Value Date Recorded Sex Assigned at Not on file Legal Sex Female 1:19 PM CDT Gender Identity Not on file Sexual Orientation Not on file 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 file Not on file Not on f ile Last Filed Vital Signs Vital Sign Reading Time Taken Comments Blood Pressure 130/93 04/22/2021 11:44 AM CDT Pulse 84 04/22/2021 11:44 AM CDT Temperature 37.1 C (98.7 F) 04/22/2021 11:44 AM CDT Respiratory Rate 16 10/01/2020 9:58 AM REGISTERED NURSE STEP DOWN Oxygen Saturation 90% 04/22/2021 11:44 AM CDT Inhaled Oxygen Concentration - - Weight 66.2 kg (146 lb) 04/22/2021 11:44 AM CDT Height 154.9 cm (5' 1) 10/01/2020 9:58 AM REGISTERED NURSE STEP DOWN Body Mass Index 27.59 10/01/2020 9:58 AM REGISTERED NURSE STEP DOWN Plan of Treatment Health Maintenance Due Date Last Done Comments LIPID TESTING 1980 Opioid Medication Agreement - Annual 1980 HIV SCREENING 1995 DTAP/TDAP/TD VACCINES (1 - Tdap) 1999 HEPATITIS B VACCINE (1 of 3 - 19+ 3-dose series) 1999 PAP SMEAR 2001 HPV VACCINE (1 - 3-dose SCDM series) 2007 MAMMOGRAM 09/04/2021 09/04/2019 COVID-19 VACCINE ( - 2023-2 5 season) 2024 DEPRESSION SCREENING 09/26/2024 INFLUENZA VACCINE (#1) 2025 , 07/10/2015 ZOSTER VACCINE (1 of 2) 2030 HEPATITIS C SCREENING Completed 12/01/2015 HIB VACCINE Aged Out No longer eligi ble based on patient's age to complete this topic MENINGOCOCCAL (Group B) VACCINE SHARED DECISION-MAKING Aged Out No longer eligible based on patient's age to complete this topic MENINGOCOCCAL GROUPS A/C/Y/W VACCINE Aged Out No longer eligible b ased on patient's age to complete this topic PNEUMOCOCCAL VACCINE Aged Out No long er eligible based on patient's age to complete this topic Goals Goal Patient Goal Type Associated Problems Recent Progress Patient-Stated? Author Medication Management General On track( 021 10:02 AM REGISTERED NURSE STEP DOWN) Idalia Cox RN Note: Expected end date: ongoing Interventions: Take all medications as prescribed Let your doctor know right away about any changes in your medications Make sure to request a refill of your medication at least one week prior to your last dose Procedures Procedure Name Priority Date/Time Associated Diagnosis Comments HEPATITIS SCREEN ACUTE Routine 12/01/2015 9:30 AM REGISTERED NURSE STEP DOWN from Last 3 Months or Most Recently Relevant to Health Maintenance Results * HEPATITIS SCREEN ACUTE (12/01/2015 9:30 AM REGISTERED NURSE STEP DOWN) Hepatitis A Virus Antibody IgM NON-REACTI VE NON-REACT [facility] Hepatitis B Virus Surface Antigen NON-REACTI VE NON-REACT [facility]) Hepatitis B Core Virus Antibody IgM NON-REACTI VE NON-REACT [facility] Hepatitis C Antibody NON-REACTI VE NON-REACT [facility] Signal/Cutoff 0.02 <1.00 [facility] Comment: Test Performed at: [employer] [facility] [id number] [place] [address] DERRICK BEGUM DO,MPH Blood specimen (specimen) BLOOD SPECIMEN / Unknown 12/01/2015 9:30 AM REGISTERED NURSE STEP DOWN 12/01/2015 9:31 AM REGISTERED NURSE STEP DOWN Farrah Rosenthal MD LAB - CHEMISTRY ORDERABLES Final Result [facility] [id number] from Last 3 Months or Most Recently Relevant to Health Maintenance Insurance Advance Directives * Full Code (Latest Code Status on File) Date Activated Date Inactivated Comments 10/08/2019 11:15 PM 10/09/2019 12:33 PM * Full Code Date Activated Date Inactivated Comments 10/07/2019 3:26 PM 10/08/2019 3:04 PM Care Teams Motor Route Carrier Relationship Specialty Start Date End Date Robert Marlow MD [address] [place] [address] PCP - General Family Medicine 07/28/23 Sabrina Wren, RN Registered Nurse 01/25/18 Maggy Anton MD [employer] Gastroenterology 04/06/18
--- OUTSIDE RECORDS SUMMARY | 2025-05-15 16:53 | XMS_ITS | Patient Health Record ---
Author Organization [facility] As [employer] [facility] Address [address] [facility] [address] [place] [address] Care Team Providers Care Compensation Business Partner Name Role Phone Ele JIMENEZ, Robert Primary Care Provider Annamarie Martin Unavailable [phone] Allergies Allergen (clinical drug ingredient) Drug/Non Drug Allergy documented on EMR Reaction Allergy Type Onset Date Status Iodinated contrast media (substance) Iodinated Contrast media (uncoded) Unknown Allergy Active buspirone Buspirone Unknown Drug Allergy Active oxycodone Oxycodone Unknown Drug Allergy Active Results Component Value Reference Range Notes UDT Reviewed date:10/09/2024 10:46:46 AM Interpretation: Performing Lab: Notes/Report: THC NEG 0 - 50 ng/ml Cocaine NEG 0 - 300 ng/ml Amphetamine NEG 0 - 1000 ng/ml Buprenorphine (BUP) NEG 0 - 10 ng/ml Secobarbital (Bar) NEG 0 - 300 ng/ml Oxazepam (BZO) NEG 0 - 300 ng/ml 4-wjpcdkcpgp-7,4-lltebsro-1,3-diphenylpyrrolidine (NATHANIEL P) NEG 0 - 300 ng/ml Methamphetamine (MET) NEG 0 - 1000 ng/ml Methylenedioxymethamphetamine (MDMA) NEG 0 - 500 ng/ml Morphine (MOP 300/[id number]) NEG 0 - 300 ng/ml Methadone (MTD) NEG 0 - 300 ng/ml Phencyclidine (PCP) NEG 0 - 25 ng/ml Nortriptyline (TCA) NEG 0 - 1000 ng/ml Oxycodone NEG 0 - 300 ng/ml x NEG 0 - 300 ng/ml Reason For Referral No Information Medications Medication SIG (Take, Route, Fr equency, Duration) Notes Start Date End Date Status Xanax 0.25 MG Tablet 1 tablet Orally once day; Duration: 30 days As needed PRN 10/09/2024 Active IUD's Active Acid Citrix Lead Active Spironolactone Activ e ZyrTEC Allergy Activ e Social History Tobacco Use: Social History Observation Description Date Details (start date - stop date) Never Smoker NA - 09/27/2021 Sex Assigned At : Social History Observation Description Sex Assigned At Female Social History Miscellaneous: Social Info Question Answer Notes Advance Care Planning Are you your own decision-maker Yes Do you have Power of Utility Sales And Service Manager for Health or [facility] salima? No Sexual History: Social Info Question Answer Notes Sexual History Had sex in the past 12 months (vaginal, oral, or anal)? Yes with Men only Use protection? 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 shared custody step son shared daughter college- law school Any household tobacco use? No Drug/Alcohol: Social Info Question Answer Notes Drugs Have you used drugs other than those for medical reasons in the past 12 months? No AUDIT-C (Standard) Did you have a drink containing alcohol in the past year? Yes How often did you have six or more drinks on one occasion in the past year? Less than monthly (1 point) How many drinks did you have on a typical day when you were drinking in the past year? 1 or 2 drinks (0 point) How often did you have a drink containing alcohol in the past year? 2 to 3 times a week (3 points) Caffeine Intake: occasional coffee occasional energy drink Tobacco Use: Social Info Question Answer Notes Tobacco Control (Standard) Tobacco use: Nonsmoker When did you stop smoking? 09/27/2021 How long has it been since you last smoked? 1-5 years Additional Findings: Tobacco non-user Current no nsmoker Additional Details Category Social Info Options Details Drug/Alcohol: Do you smoke marijuana? Den ies Do you drink alcohol? Yes Problems Problem Type SNOMED Code ICD Code Onset Dates Problem Status W/U Status Risk Notes Problem Generalized anxiety disorder (66733487) Anxiety, generalized (F41.1) Active confirmed Problem Posttraumatic stress disorder (34416909) Chronic post-traumatic stress disorder (PTSD) (F43.12) Active confirmed Problem Elevated blood-pressure reading without diagnosis of hypertension (370584483) Elevated blood pressure reading (R03.0) Active confirmed Vital Signs Heart Rate 97 /min 10/09/2024 Blood pressure diastolic 81 mm Hg 10/09/2024 Weight-kg 58.97 kg 10/09/2024 Blood pressure systolic 142 mm Hg 10/09/2024 Weight 130.0 lbs 10/09/2024 Encounters Encounter Location Date Provider Diagnosis [facility] [employer] [facility] [address] [facility] [address] [place] [address] 10/09/2024 Annamarie Linkvalerie Elevated blood pressure reading R03.0 ; Anxiety, generalized F41.1 and Chronic post-traumatic stress disorder (PTSD) F43.12 Assessments Encounter Date Diagnosis (ICD Code) Assessment Notes Treatment Notes Treatment Clinical Notes Section Notes 10/09/2024 Elevated blood pressure reading (ICD-10 - R03.0) High Blood Pressure: Care Instructions material was published, Learning About High Blood Pressure material was published, Home Blood Pressure Test: About This Test material was published Presently taking Xanax 0.25 mg PRN 1. Anxiety Xanax 0.25 mg PRN - reported takes 1/2 tab as needed control substance agreement UDS and [facility] only no early refill on control substance 2. PTSD discuss and educated on Prazosin 1 mg PRN for nightmares and flashbacks monitor B/P 3. Continue therapy records Dr. Whiting http_s://www.avis. org/Zmzhs-Mbuvpo-Y llness/Mental-Heal th-Conditions http_s://psychcent Kiind.me.com/depression /lcv-ezhxujuvg-lnv kwmyr-mv-sqwddwlxk n#treatments http__s://www.nimh .nih.gov/health/to pics/mental-health -medications http__s://www.avis .org/About-Mental- Illness/Treatments /Nazkdj-Bslyuw-Ivc ications educated on all medications, benefits, side effects and risk, and educated on depression, anxiety, and ADHD, mood d/o and educated on compliance of medications, metabolic and movement d/o education appointment's, continue therapy discussion with patient about course of treatment and patient instructions. education on serotonin syndrome Discussed and educated pt regarding benzodiazepines are generally not intended for prolonged use and that use can cause tolerance, dependence, depression, and associated memory issues including dementias (this list is not exhaustive). Benzodiazepine use is generally not recommended concurrently with pain medications and/or other controlled substances educated on all medications, benefits, side effects and risk, and educated on depression, anxiety, and ADHD, mood d/o and educated on compliance of medications, metabolic and movement d/o education appointment is, continue therapy discussion with patient about course of treatment and patient instructions. education on serotonin syndrome SSRI/SNRI side effects discussed including but not limited to, gastric upset, nausea, vomiting, diarrhea and/or constipation, weight changes, sexual side effects including loss of libido, increased suicidal thoughts/behaviors in children and young adults, and serotonin syndrome. Medication Management and Follow-Up - Plan: - Schedule follow-up appointments every 1-3 months to monitor the patient's response to the medication regimen. - Reinforce the importance of avoiding recreational drug use due to potential neurotoxicity and interactions with prescribed medications 10/09/2024 Anxiety, generalized (ICD-10 - F41.1) Learning About Generalized Anxiety Disorder material was published, Learning About Anxiety Disorders material was published, Generalized Anxiety Disorder: Care Instructions material was published Presently taking Xanax 0.25 mg PRN 1. Anxiety Xanax 0.25 mg PRN - reported takes 1/2 tab as needed control substance agreement UDS and [facility] only no early refill on control substance 2. PTSD discuss and educated on Prazosin 1 mg PRN for nightmares and flashbacks monitor B/P 3. Continue therapy records Dr. Whiting http_s://www.avis. org/Wtsng-Ndzebh-K llness/Mental-Heal th-Conditions http_s://psychcent ral.com/depression /lhz-slxbzxsgc-dxc qltmn-va-vziernyox n#treatments http__s://www.nimh .nih.gov/health/to pics/mental-health -medications http__s://www.avis .org/About-Mental- Illness/Treatments /Yzqjgq-Frgfnc-Ymw ications educated on all medications, benefits, side effects and risk, and educated on depression, anxiety, and ADHD, mood d/o and educated on compliance of medications, metabolic and movement d/o education appointment's, continue therapy discussion with patient about course of treatment and patient instructions. education on serotonin syndrome Discussed and educated pt regarding benzodiazepines are generally not intended for prolonged use and that use can cause tolerance, dependence, depression, and associated memory issues including dementias (this list is not exhaustive). Benzodiazepine use is generally not recommended concurrently with pain medications and/or other controlled substances educated on all medications, benefits, side effects and risk, and educated on depression, anxiety, and ADHD, mood d/o and educated on compliance of medications, metabolic and movement d/o education appointment is, continue therapy discussion with patient about course of treatment and patient instructions. education on serotonin syndrome SSRI/SNRI side effects discussed including but not limited to, gastric upset, nausea, vomiting, diarrhea and/or constipation, weight changes, sexual side effects including loss of libido, increased suicidal thoughts/behaviors in children and young adults, and serotonin syndrome. Medication Management and Follow-Up - Plan: - Schedule follow-up appointments every 1-3 months to monitor the patient's response to the medication regimen. - Reinforce the importance of avoiding recreational drug use due to potential neurotoxicity and interactions with prescribed medications 10/09/2024 Chronic post-traumatic stress disorder (PTSD) (ICD-10 - F43.12) Post-Traumatic Stress Disorder (PTSD): Care Instructions material was published Presently taking Xanax 0.25 mg PRN 1. Anxiety Xanax 0.25 mg PRN - reported takes 1/2 tab as needed control substance agreement UDS and [facility] only no early refill on control substance 2. PTSD discuss and educated on Prazosin 1 mg PRN for nightmares and flashbacks monitor B/P 3. Continue therapy records Dr. Whiting http_s://www.avis. org/Lhujj-Rqkijw-E llness/Mental-Heal th-Conditions http_s://psychcent Kiind.me.com/depression /nsz-btwgpmkkx-foa egqxs-br-rbgicnhee n#treatments http__s://www.nimh .nih.gov/health/to pics/mental-health -medications http__s://www.avis .org/About-Mental- Illness/Treatments /Ndgygp-Fnsqke-Gin ications educated on all medications, benefits, side effects and risk, and educated on depression, anxiety, and ADHD, mood d/o and educated on compliance of medications, metabolic and movement d/o education appointment's, continue therapy discussion with patient about course of treatment and patient instructions. education on serotonin syndrome Discussed and educated pt regarding benzodiazepines are generally not intended for prolonged use and that use can cause tolerance, dependence, depression, and associated memory issues including dementias (this list is not exhaustive). Benzodiazepine use is generally not recommended concurrently with pain medications and/or other controlled substances educated on all medications, benefits, side effects and risk, and educated on depression, anxiety, and ADHD, mood d/o and educated on compliance of medications, metabolic and movement d/o education appointment is, continue therapy discussion with patient about course of treatment and patient instructions. education on serotonin syndrome SSRI/SNRI side effects discussed including but not limited to, gastric upset, nausea, vomiting, diarrhea and/or constipation, weight changes, sexual side effects including loss of libido, increased suicidal thoughts/behaviors in children and young adults, and serotonin syndrome. Medication Management and Follow-Up - Plan: - Schedule follow-up appointments every 1-3 months to monitor the patient's response to the medication regimen. - Reinforce the importance of avoiding recreational drug use due to potential neurotoxicity and interactions with prescribed medications 10/09/2024 Other Learning About Depression Screening material was printed, Alprazolam Oral Tablet (ALPRAZOLAM - ORAL) material was published, Prazosin Oral Capsule (PRAZOSIN - ORAL) material was published Presently taking Xanax 0.25 mg PRN 1. Anxiety Xanax 0.25 mg PRN - reported takes 1/2 tab as needed control substance agreement UDS and [facility] only no early refill on control substance 2. PTSD discuss and educated on Prazosin 1 mg PRN for nightmares and flashbacks monitor B/P 3. Continue therapy records Dr. Whiting http_s://www.avis. org/Pnlmt-Shohdx-P llness/Mental-Heal th-Conditions http_s://psychcent Kiind.me.com/depression /fop-bwdgejdod-tdh ljawe-yo-tehhqegqt n#treatments http__s://www.nimh .nih.gov/health/to pics/mental-health -medications http__s://www.avis .org/About-Mental- Illness/Treatments /Xnvglx-Teksub-Zbd ications educated on all medications, benefits, side effects and risk, and educated on depression, anxiety, and ADHD, mood d/o and educated on compliance of medications, metabolic and movement d/o education appointment's, continue therapy discussion with patient about course of treatment and patient instructions. education on serotonin syndrome Discussed and educated pt regarding benzodiazepines are generally not intended for prolonged use and that use can cause tolerance, dependence, depression, and associated memory issues including dementias (this list is not exhaustive). Benzodiazepine use is generally not recommended concurrently with pain medications and/or other controlled substances educated on all medications, benefits, side effects and risk, and educated on depression, anxiety, and ADHD, mood d/o and educated on compliance of medications, metabolic and movement d/o education appointment is, continue therapy discussion with patient about course of treatment and patient instructions. education on serotonin syndrome SSRI/SNRI side effects discussed including but not limited to, gastric upset, nausea, vomiting, diarrhea and/or constipation, weight changes, sexual side effects including loss of libido, increased suicidal thoughts/behaviors in children and young adults, and serotonin syndrome. Medication Management and Follow-Up - Plan: - Schedule follow-up appointments every 1-3 months to monitor the patient's response to the medication regimen. - Reinforce the importance of avoiding recreational drug use due to potential neurotoxicity and interactions with prescribed medications Plan Of Treatment No Information Insurance Providers Payer Name Payer Address Payer Phone Subscriber Number Group Number Insured Name Patient Relationship to Insured Coverage Start Date Coverage End Date [employer] [address] [place] [address] [id number] Mikayla Clayton Self - patient is the insured Medical (General) History Medical History History ICD Code Anxiety Crohn Disease Colonic Disease abdominal aortic aneurysm: No atrial fibrillation: No chronic fatigue syndrome: No essential tremor: No hyperlipidemia: No hypertension: No Parkinson's disease: No restless leg syndrome: No stroke: No subdural hematoma: No type 1 diabetes mellitus: No type 2 diabetes mellitus: No vitamin B12 deficiency: Yes vitamin D deficiency: Yes I have had a breast reductio n in Oct 2019, a colon resection in February of 2010 and 4 surgeries on my face to remove a birthmark before I was 5 Surgical History Surgery Date(Month/Year) I have had a breast reductio n in Oct 2019, a colon resection in February of 2010 and 4 surgeries on my face to remove a birthmark before I was 5
[2025-05-15 16:55] VITALS: BP 140/87; PULSE 108; RESP 16; TEMP 36.6; O2SAT 100
--- NOTE | 2025-05-15 16:59 | ED_ITS ---
HPI - Female Genitourinary General Chief complaint: Urogenital-Female Stated complaint: uti Time Seen by Provider: 05/15/25 17:04 Source: patient and RN notes reviewed Mode of arrival: ambulatory Limitations: no limitations History of Present Illness HPI Narrative: 44-year-old female presented for complaint of burning with urination, urgency and mild cramping. Onset today. Took ibuprofen. Endorses getting UTIs or yeast infections after taking antibiotics, states she completed amoxicillin 4 days ago for dental work. Denies hematuria, nausea, vomiting, abdominal pain, flank pain, constipation, diarrhea, fevers or chills. Related Data Home Medications ?Medication ?Instructions ?Recorded ?Confirmed ?Last Taken ?Type alprazolam 0.25 mg tablet 0.25 mg PO QHS PRN Anxiety 1 10/27/20 06/29/24 Unknown History ascorbic acid (vitamin C) 500 mg 250 mg PO DAILY 08/2606/29/24 Unknown History tablet cranberry fruit 400 mg capsule 400 mg PO DAILY 1 06/29/24 Unknown History hyoscyamine sulfate 0.125 mg tablet 0.125 mg PO PRN LA N Cramps 08/14/22 06/29/24 Unknown History levonorgestrel (Mirena) See Rx Instructions .Route . COMPLEX 08/14/22 06/29/24 Unknown History risankizumab-rzaa 360 mg/2.4 mL See Rx Instructions .R oute .COMPLEX 02/22/24 06/29/24 Unknown History (150 mg/mL) subcut wearable injector (Skyrizi) spironolactone 100 mg tablet 100 mg PO DAILY 06/29/24 06/29/24 Unknown History ondansetron HCl 8 mg tablet mg 05/15/25 Unknown Histo ry pantoprazole 20 mg tablet,delayed mg PO 05/15/25 Unkn own History release Allergies Allergy/AdvReac Type Severity Reaction Status Date / Time Iodinated Contrast Media Allergy Severe Anaphylaxis Verified 05/15/25 17:00 acetaminophen (From Percocet) AdvReac Intermediate Hypotension Verified 05/15/25 17:00 buspirone (From BuSpar) AdvReac Intermediate Palpitation Verified 05/15/25 17:00 s oxycodone (From Percocet) AdvReac Intermediate Hypotension Verified 05/15/25 17:00 Review of Systems Review of Systems: CONSTITUTIONAL: Denies body aches, fever, chills, or sweats. CARDIOVASCULAR: Denies chest pain, palpitations, or edema. RESPIRATORY: Denies cough or dyspnea. GASTROINTESTINAL: Denies abdominal pain, nausea, vomiting, or diarrhea. GENITOURINARY: Reports dysuria, denies frequency, urgency, hematuria, flank pain, discharge SKIN: Denies rash, itching, or wounds. MUSCULOSKELETAL: Denies back pain or myalgia. [facility] Past Medical History Medical History (Updated 05/15/25 @ 17:10 by Purvi Bearden APRN) Crohn disease Colonic disease Osteopenia Anxiety Surgical History Surgical History History of facial surgery History of bilateral breast reduction surgery History of colon resection Family History Family History Father Hypertension Depression Mother Asthma Grandparent Kidney cancer, primary, with metastasis from kidney to other site Other Allergies Breast cancer Malignant neoplasm of prostate Social History Social History Smoking status: Current every day smoker Tobacco type: e-cigarettes/vaping Second hand tobacco smoke exposure: Yes Alcohol intake: current Alcohol use details: socially Substance use: never Substance use type: does not use Lack of Transportation: No Lack of Food: Never True Current Housing: I Have Housing Concerned About Future Housing: No Difficulty Paying Gas/Electric Bills: No Difficulty Paying for Meds: No Currently Unemployed: No Education: High School Diploma/GED Difficulty w/ Childcare or Family Care: No Living arrangements: with family Occupation/Education: occupation 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 Please see nursing chart for further information. There is no relevant family history pertinent to the presenting complaint Exam Narrative: GENERAL: Well-appearing and in no acute distress. ENT: Mucous membranes pink and moist. NECK: Normal AROM. Supple. CHEST: No respiratory distress. Clear to auscultation. HEART: Regular rate and rhythm. ABDOMEN: Soft, nontender, nondistended, normal active bowel sounds. No CVA tenderness SKIN: Warm, dry, no rash. NEURO: No focal deficits. Alert and oriented x3. Gait steady. PSYCH: Normal affect. Course Course Emergency Course: Patient is aware of diagnosis, understands and agrees to treatment plan. Anticipatory guidance given. Patient agrees to follow-up as directed and is aware of reasons to seek care at the emergency department. Portions of this record may have been created with voice recognition software Level of Care: Express Care Visit Vital Signs Vital signs: Reviewed MDM - Female Genitourinary MDM Narrative Medical decision making narrative: Discussed physical exam findings and urine dip; will culture and treat for yeast at this time. Advised supportive measures and signs/symptoms to go to the ER. Pt is appropriate for outpt treatment and f/u. Differential Diagnosis Differential diagnosis: Likely urinary tract infection, bacterial vaginosis, vaginitis and cystitis Discharge Plan Discharge Clinical Impression: Dysuria Patient Disposition: Home Condition: Stable Instructions: Antibiotic Form, Urinary Tract Infection in Women (ED) Additional Instructions: Your urine will be sent of for a culture to determine if bacteria is causing your symptoms. If the culture shows a UTI, you will be notified and an antibiotic will be called in for you. Prescription for fluconazole has been sent to cover for yeast infection Continue to increase water intake you will need to follow up with your PCP for further evaluation and treatment if symptoms persist, call to schedule follow-up appointment. Go to the ER for any worsening symptoms or concerns. Patient Language: [place] Prescriptions: New fluconazole 150 mg tablet 150 mg PO DAILY Qty: 2 0RF No Action hyoscyamine sulfate 0.125 mg tablet 0.125 mg PO PRN PRN (Reason: Cramps) Mirena 20 mcg/24 hours (8 yrs) 52 mg Intrauterine Device See Rx Instructions .ROUTE .COMPLEX Rx Instructions: 20 mcg intrauterinely Skyrizi 360 mg/2.4 mL (150 mg/mL) wearable injector See Rx Instructions .ROUTE .COMPLEX Rx Instructions: 360 mg subcutaneously every 8 weeks spironolactone 100 mg tablet 100 mg PO DAILY ondansetron HCl 8 mg tablet pantoprazole 20 mg tablet,delayed release (DR/EC) PO alprazolam 0.25 mg tablet 0.25 mg PO QHS PRN (Reason: Anxiety) ascorbic acid (vitamin C) 500 mg tablet 250 mg PO DAILY cranberry fruit 400 mg capsule 400 mg PO DAILY Rx Instructions: administer with a meal loratadine [Claritin] 10 mg tablet 10 mg PO DAILY Qty: 30 2RF fluticasone propionate [Flonase Allergy Relief] 50 mcg/actuation spray,suspension 1 spray intranasal DAILY Qty: 16 0RF Rx Instructions: administer into each nostril valacyclovir [Valtrex] 1 gram tablet 1,000 mg PO BID Qty: 20 0RF Follow-up/Referrals: Robert Marlow MD [Primary Care Provider, Family Practice]
[2025-05-15 17:15] LABS: EDUAAPPEAR Clear; EDUABILI Negative (Negative); EDUABLOOD Negative (Negative); EDUACOLOR1 Yellow; EDUAGLUCOSE Negative (Negative); EDUAKETONE Negative (Negative); EDUALEUKO Trace (Negative); EDUANITRATE Negative (Negative); EDUAPH 6.5; EDUAPROTEIN Negative (Negative); EDUASPGRAVITY 1.015; EDUAUROBILI 0.2
== END 2025-05-15 17:13 | disposition home or self-care (01) ==
PROVIDERS: Emergency Provider Nurse Practitioner Family; PCP Family Medicine
DX: R30.0 Dysuria (principal); F17.290 Nicotine dependence, other tobacco product, uncomplicated; K50.90 Crohn's disease, unspecified, without complications; M85.80 Other specified disorders of bone density and structure, unspecified site; F41.9 Anxiety disorder, unspecified
CPT/HCPCS: 81003; 87086; 99213; G0463